=== PATIENT | male | born 1985 | race Caucasian/White ===

== ENCOUNTER 2016-08-06 15:40 | Inpatient (IN) | payer OTHER ==
[2016-08-06 16:05] LABS: Glucose,Whole Blood 74 mg/dL (75-99)
[2016-08-06] MEDS ORDERED: oxyCODONE-APAP 10-325MG 1 EACH TAB PO STA (16:10)
[2016-08-06] MEDS ORDERED: NALOXONE 0.4 MG/ML 1 ML VIAL IV PRN (17:13)
[2016-08-06] MEDS ORDERED: SODIUM CHLORIDE 0.9% 1,000 ML IV SCH (17:15)
[2016-08-06] MEDS ORDERED: ALPRAZolam 0.25 MG TAB PO PRN (17:18)
--- NOTE | 2016-08-06 17:19 | ED ---
Seizure HPI - General Chief Complaint: Seizure Stated Complaint: seizures Time Seen by Provider: 08/06/16 15:51 Source: patient Mode of arrival: EMS Limitations: altered mental status - History of Present Illness Initial Comments: This patient is a 30-year-old man with history of previous seizure disorder who was transferred here from [facility]. The patient reportedly had multiple seizures over the course of the past hours. The patient reportedly [facility] but as there is no neurologist there they treated him and transferred him here. The patient did receive a loading dose of Keppra there. Here the patient is appearing to be postictal and not able to give any additional history. MD Complaint: seizure -: hour(s) Description of Episode: loss of consciousness, tonic-clonic movement -: minutes(s) Witnessed: yes - by bystander Trauma: No Seizure History: known seizure disorder Place: home Possible Precipitating Event: head injury, medication Treatments Prior to Arrival: other (Keppra) - Related Data Home Medications Medication Instructions Recorded Confirmed ALPRAZolam [Xanax] 0.25 mg PO HS PRN 08/06/16 08/06/16 Gabapentin 800 mg PO TID 08/06/16 08/06/16 QUEtiapine [SEROquel] 400 mg PO HS 08/06/16 08/06/16 cloNIDine HCL [Catapres] 0.1 mg PO HS 08/06/16 08/06/16 oxyCODONE-APAP 10-325MG [Percocet 1 tab PO QID 08/06/16 08/06/16 10-325 mg] Previous Rx's Medication Instructions Recorded Nicotine 14Mg/24Hr Patch [Habitrol] 1 patch TRANSDERM DAILY #30 patch 08/07/16 levETIRAcetam [Keppra] 1,000 mg PO Q12HR #60 tab 08/07/16 Allergies Allergy/AdvReac Type Severity Reaction Status Date / Time haloperidol [From Haldol] Allergy Unknown Verified 08/06/16 16:55 haloperidol lactate Allergy Unknown Verified 08/06/16 16:55 [From Haldol] onion Allergy Swelling Verified 08/06/16 16:55 strawberry Allergy Swelling Verified 08/06/16 16:55 ziprasidone HCl [From Geodon] AdvReac Unknown Verified 08/06/16 16:55 ziprasidone mesylate AdvReac Vomiting Verified 08/06/16 16:55 [From Sumi] Review of Systems ROS Statement: Those systems with pertinent positive or pertinent negative responses have been documented in the HPI. ROS Other: All systems not noted in ROS Statement are negative. Limitations: ROS unobtainable due to patients medical condition Respiratory: Denies: dyspnea Cardiovascular: Denies: chest pain Gastrointestinal: Denies: abdominal pain Neurological: Denies: headache Past Medical History Past Medical History: Musculoskeletal Disorder Additional Past Medical History / Comment(s): Herniated disc with chronic back pain-diagnosed 1.5 year ago approximately. History of Any Multi-Drug Resistant Organisms: None Reported Past Surgical History: No Surgical Hx Reported Additional Past Surgical History / Comment(s): Cyst removed from the right wrist and right leg Past Anesthesia/Blood Transfusion Reactions: No Reported Reaction Past Psychological History: Bipolar Additional Psychological History / Comment(s): Mood disorder, Antisocial Personality disorder, and Previous suicidal attempts Smoking Status: Current every day smoker Past Alcohol Use History: Occasional Additional Past Alcohol Use History / Comment(s): He smokes one pack per day of cigarettes and states he drinks "once a week." Pt. admits to using marijuana every day. Past Drug Use History: Marijuana, Opiates, Prescription Drug Abuse Additional Drug Use History / Comment(s): morphine - Past Family History Father History Unknown: Yes Family Medical History: No Reported History Additional Family Medical History / Comment(s): He does not know any history on his father. Mother Family Medical History: Cancer Additional Family Medical History / Comment(s): Mother is alive at age 45 with history of breast cancer Sister(s) Family Medical History: No Reported History Additional Family Medical History / Comment(s): He has one sister that is living in the [facility] and is healthy. Patient does not have any brothers. General Exam Limitations: no limitations General appearance: obtunded Head exam: Present: atraumatic, normocephalic, normal inspection Eye exam: Present: normal appearance, PERRL. Absent: scleral icterus, conjunctival injection ENT exam: Present: mucous membranes dry, TM's normal bilaterally, normal external ear exam Neck exam: Present: normal inspection, full ROM. Absent: tenderness, meningismus Respiratory exam: Present: normal lung sounds bilaterally. Absent: respiratory distress, wheezes, rales, rhonchi, stridor, chest wall tenderness Cardiovascular Exam: Present: regular rate, normal rhythm, normal heart sounds. Absent: systolic murmur, diastolic murmur, rubs GI/Abdominal exam: Present: soft. Absent: distended, tenderness, guarding, rebound, pulsatile mass, hernia Extremities exam: Present: normal inspection, normal capillary refill. Absent: pedal edema, calf tenderness Back exam: Present: normal inspection. Absent: CVA tenderness (R), CVA tenderness (L) Neurological exam: Present: altered, CN II-XII intact, other (Patient appears to be postictal. He is not able to comply with the neurologic exam. Patient able to follow only very simple one step commands. There does not appear to be any focal weakness or sensory deficit, moves all 4 extremities.). Absent: oriented X3 (Patient oriented to person), motor sensory deficit Skin exam: Present: warm, dry, intact, normal color. Absent: rash Course Vital Signs 08/06/16 08/06/16 08/06/16 15:47 16:49 18:15 Temperature 98.0 F 98.0 F Pulse Rate 67 67 71 Respiratory 18 16 18 Rate Blood Pressure 123/67 114/69 103/57 O2 Sat by Pulse 96 98 98 Oximetry Medical Decision Making - Medical Decision Making Patient is a 30-year-old man with history of seizure disorder who has had multiple recent seizures, treated at [facility] with Kealexra and transferred here to have neurology consultation. He is not able to provide much history at this time he appears to be postictal. No focal neurologic findings however. Patient be admitted to have neurology consultation. - Lab Data Lab Results 08/06/16 Range/Units 16:01 POC Glucose (mg/dL) 74 L (75-99) mg/dL POC Glu [employer] Jogger ID Ezio Srlissa Disposition Clinical Impression: New onset seizure Disposition: ADMITTED IP TO THIS HOSP Condition: Fair
[2016-08-06] MEDS: oxyCODONE-APAP 10-325MG 1 EACH TAB PO PRN (19:21)
[2016-08-06] MEDS ORDERED: LORazepam 2 MG/ML SYRINGE IV PRN (19:39)
[2016-08-06] MEDS ORDERED: NICOTINE 14MG/24HR PATCH TRANSDERM STA (19:48)
[2016-08-06] MEDS ORDERED: QUEtiapine 400 MG TAB PO SCH (21:00)
--- NOTE | 2016-08-06 22:37 | P.HPIM ---
History of Present Illness H&P Date: 08/06/16 Chief Complaint: Refractory seizure, recent head trauma, possible side effect of medication, 30-year-old male one of Dr. Acosta patient with past medical history of hypertension, chronic back pain, recurrent depression and bipolar disorders, chronic history of smoking and chronic history of marijuana use who apparently fell and had close head trauma over 2 weeks ago has lost his consciousness 15 to 22nd begin it back without any neuro deficit. Yesterday patient developed to have multiple seizure activity on and off and every time left him with no neuro loss that was more slightly hypersensitive to the light at the time. Today patient had multiple seizure activity ended up making it to [facility] where was seen and evaluated was loaded with 1 g of Keppra giving some lorazepam CAT scan of the brain was done along with full panel blood work with no obvious major abnormality. Was transferred to [facility] to be seen by neurology and require to have an EEG and further management of this refractory seizure at this point. Review of Systems Constitutional: Reports fatigue, Reports lethargy, Reports malaise, Reports weakness, Denies as per HPI, Denies anorexia, Denies chills, Denies chronic headaches, Denies chronic pain, Denies daytime sleepiness, Denies fever, Denies night sweats, Denies poor appetite, Denies sweats, Denies weight gain, Denies weight loss Eyes: bilateral as per HPI Ears: deny: decreased hearing Ears, nose, mouth and throat: Reports ant. neck pain, Reports sinus pain, Reports sinus pressure, Denies as per HPI, Denies bleeding gums, Denies dental pain, Denies dysphagia, Denies epistaxis, Denies headache, Denies hoarseness, Denies mouth pain, Denies nasal congestion, Denies nasal discharge, Denies neck fullness/pressure, Denies neck lump, Denies nose pain, Denies odynophagia, Denies post-nasal drip, Denies swelling in mouth, Denies swelling in throat, Denies sore throat, Denies vertigo, Denies voice changes Cardiovascular: Denies as per HPI, Denies chest pain, Denies claudication, Denies decreased exercise tolerance, Denies dyspnea on exertion, Denies edema, Denies high blood pressure, Denies irregular heart beat, Denies leg edema, Denies lightheadedness, Denies orthopnea, Denies palpitations, Denies paroxysmal nocturnal dyspnea, Denies phlebitis, Denies rapid heart beat, Denies shortness of breath, Denies syncope Respiratory: Reports congestion, Reports cough, Reports dyspnea, Denies as per HPI, Denies cough with sputum, Denies excessive sputum, Denies hemoptysis, Denies home oxygen, Denies pain, Denies pain on inspiration, Denies pleurisy, Denies respiratory infections, Denies sleep apnea, Denies snoring, Denies wheezing Gastrointestinal: Reports belching, Reports constipation, Reports excessive gas , Reports indigestion, Reports nausea, Denies as per HPI, Denies abdominal pain , Denies bloating, Denies BRBPR, Denies change in bowel habits, Denies coffee ground emesis, Denies diarrhea, Denies dyspepsia, Denies early satiety, Denies heartburn, Denies hematemesis, Denies hematochezia, Denies jaundice, Denies lactose intolerance, Denies loss of appetite, Denies melena, Denies vomiting Genitourinary: Reports dysuria, Reports nocturia, Reports polyuria, Denies as per HPI, Denies decreased libido, Denies difficulties fathering child, Denies discharge, Denies erectile dysfunction, Denies flank pain, Denies genital pain, Denies genital sores, Denies hematuria, Denies impotence, Denies incontinence, Denies kidney stones, Denies testicular lump, Denies testicular pain, Denies urinary frequency, Denies urinary hesitancy, Denies urinary retention Musculoskeletal: Reports limitation of motion, Reports low back pain, Reports morning stiffness, Reports muscle cramps, Reports muscle weakness, Reports myalgias, Reports neck pain, Reports neck stiffness, Denies as per HPI, Denies arm numbness/tingling, Denies atrophy, Denies fractures, Denies frequent falls, Denies gait dysfunction, Denies hot joints, Denies leg numbness/tingling, Denies loss of height, Denies prior amputations, Denies redness of joints, Denies shooting arm pain, Denies shooting leg pain Integumentary: Denies as per HPI, Denies acne, Denies boils, Denies brittle nails, Denies change in hair/nails, Denies color changes, Denies darkening of skin, Denies depigmentation, Denies dryness, Denies foot/leg ulcers, Denies growths, Denies hirsutism, Denies lesions, Denies onychomycosis, Denies pruritus , Denies rash, Denies sores, Denies striae, Denies unusual bruising, Denies wounds Neurological: Reports convulsions, Reports gait dysfunction, Reports head injury , Reports numbness, Reports seizures, Reports tremors, Denies as per HPI, Denies aphasia, Denies ataxia, Denies balance difficulties, Denies burning pain , Denies change in mentation, Denies change in smell/taste, Denies change in speech, Denies confusion, Denies double vision, Denies headaches, Denies hearing difficulties, Denies lack of coordination, Denies loss of vision, Denies memory loss, Denies migraines, Denies motor disturbance, Denies paralysis , Denies paresthesias, Denies sensory deficit, Denies spasticity, Denies syncope , Denies tic, Denies tingling, Denies transient paralysis, Denies vertigo, Denies weakness, Denies visual changes Psychiatric: Reports anhedonia, Reports depression, Reports paranoia, Reports sadness/tearfulness, Denies as per HPI, Denies anxiety, Denies anxiety attacks, Denies change in appetite, Denies change in libido, Denies change in sleep habits, Denies confusion, Denies difficulty concentrating, Denies disorientation , Denies hallucinations, Denies hopelessness, Denies hypersomnia, Denies insomnia, Denies irritability, Denies memory loss, Denies mood swings, Denies sleep disturbances, Denies suicidal ideation Endocrine: Reports cold intolerance, Reports excessive thirst, Reports fatigue, Denies as per HPI, Denies deepening of the voice, Denies excessive sweating, Denies flushing, Denies heat intolerance, Denies high blood sugars, Denies increase in ring/shoe/hat size, Denies low blood sugars, Denies nocturia, Denies palpitations, Denies polydipsia, Denies polyphagia, Denies polyuria, Denies proptosis, Denies recent glucocorticoid use, Denies thyroid mass, Denies weight change Hematologic/Lymphatic: Denies as per HPI, Denies easy bleeding, Denies easy bruising, Denies lymphadenopathy, Denies lymphedema, Denies thrombophilia Allergic/Immunologic: Denies as per HPI, Denies allergic rhinitis, Denies anaphylaxis, Denies angioedema, Denies gluten intolerance, Denies persistent infections, Denies seasonal allergies, Denies urticaria, Denies wheezing Past Medical History Past Medical History: Musculoskeletal Disorder Additional Past Medical History / Comment(s): 08-06-16 [place] SEIZURE. Herniated disc with chronic back pain-diagnosed 1.5 year ago approximately. History of Any Multi-Drug Resistant Organisms: None Reported Past Surgical History: No Surgical Hx Reported Additional Past Surgical History / Comment(s): Cyst removed from the right wrist and right leg Past Anesthesia/Blood Transfusion Reactions: No Reported Reaction Past Psychological History: Bipolar Additional Psychological History / Comment(s): Mood disorder, Antisocial Personality disorder, and Previous suicidal attempts Smoking Status: Current every day smoker Past Alcohol Use History: Occasional Additional Past Alcohol Use History / Comment(s): He started smoking at age 12 smokes one pack per day of cigarettes and states he drinks "once a week." Pt. admits to using MED marijuana OCC USE- LAST USED 08-05-16-denies any other drug use currently. Past Drug Use History: Marijuana, Opiates, Prescription Drug Abuse Additional Drug Use History / Comment(s): morphine - Past Family History Father History Unknown: Yes Family Medical History: No Reported History Additional Family Medical History / Comment(s): He does not know any history on his father. Mother Family Medical History: Cancer Additional Family Medical History / Comment(s): Mother is alive at age 45 with history of breast cancer Sister(s) Family Medical History: No Reported History Additional Family Medical History / Comment(s): He has one sister that is living in the [facility] and is healthy. Patient does not have any brothers. Medications and Allergies Home Medications Medication Instructions Recorded Confirmed Type ALPRAZolam [Xanax] 0.25 mg PO HS PRN 08/06/16 08/06/16 History Gabapentin 800 mg PO TID 08/06/16 08/06/16 History QUEtiapine [SEROquel] 400 mg PO HS 08/06/16 08/06/16 History cloNIDine HCL [Catapres] 0.1 mg PO HS 08/06/16 08/06/16 History oxyCODONE-APAP 10-325MG [Percocet 1 tab PO QID 08/06/16 08/06/16 History 10-325 mg] Allergies Allergy/AdvReac Type Severity Reaction Status Date / Time haloperidol [From Haldol] Allergy Unknown Verified 08/06/16 16:55 haloperidol lactate Allergy Unknown Verified 08/06/16 16:55 [From Haldol] onion Allergy Swelling Verified 08/06/16 16:55 strawberry Allergy Swelling Verified 08/06/16 16:55 ziprasidone HCl [From Geodon] AdvReac Unknown Verified 08/06/16 16:55 ziprasidone mesylate AdvReac Vomiting Verified 08/06/16 16:55 [From Geodon] Physical Exam Vitals: Vital Signs Temp Pulse Pulse Resp BP BP Pulse Ox 08/06/16 19:05 97.6 F 77 17 104/62 100 08/06/16 18:15 98.0 F 71 18 103/57 98 - Constitutional General appearance: no average body habitus, cooperative, no disheveled, no mild distress, no morbidly obese, no acute distress, no obese, no severe distress, no thin - EENT Eyes: abnormal pupil, no anicteric sclerae, no disc margins sharp, no edentulous , no EOMI, no PERRLA, no fundus normal, no photophobia, no dentition normal, no poor dentition, no ptosis, no scleral icterus, no normal appearance ENT: no hard of hearing, no hearing grossly normal, no NA/AT, normal oropharynx , no other, no pharyngeal erythema, no thrush, no tonsillar exudates, no tonsillar swelling Ears: bilateral: normal - Neck Neck: no lymphadenopathy, no normal ROM, no other, no rigidity, no stridor, no thyromegaly Carotids: bilateral: upstroke normal Thyroid: bilateral: normal size - Respiratory Respiratory: bilateral: CTA, diminished - Cardiovascular Rhythm: regular Heart sounds: normal: S1, S2 - Gastrointestinal General gastrointestinal: no absent bowel sounds, decreased bowel sounds, no distended, no hepatomegaly, no hyperactive bowel sounds, no normal bowel sounds , no organomegaly, no rigid, no scaphoid, no soft, no splenomegaly, no tenderness, no umbilical hernia, no ventral hernia - Integumentary Integumentary: no calor, no cellulitis, no cyanotic, no decreased turgor, no flushed, no jaundiced, normal, no normal turgor, pale, no rash, no ulcer - Neurologic Neurologic: CNII-XII intact - Musculoskeletal Musculoskeletal: gait normal, generalized weakness, strength equal bilaterally, no right sided weakness, no left sided weakness - Psychiatric Psychiatric: A&O x's 3, appropriate affect Thrombosis Risk Factor Assmnt - DVT/VTE Prophylaxis DVT/VTE Prophylaxis: Mechanical Prophylaxis ordered Assessment and Plan Plan: 1 refractory seizure as a new onset of seizure: Shortly after close head trauma , not a clear etiology so far this is could be side effect from tramadol can be from the head trauma. Patient will be seen neurology will go for an EEG continue medication with Keppra after the loading dose for now if EEG showed any seizure activity patient need to be on treatment for seizure for long time otherwise this might be side effect from Ultram and if EEG is negative Keppra can be stopped after 4 weeks. 2 close head trauma recently: Patient does not have any bleeding or any major abnormality. Continue to monitor closely. 3 chronic pain management: Patient has been on hydrocodone and was on tramadol beside muscle relaxer and gabapentin, patient might be having side effect from tramadol which should be stopped completely at this point and to continue gabapentin and hydrocodone. 4 Chronic depression: Patient has been doing well on Seroquel 400 mg daily at bedtime. 5 hypertension: Stable on a clonidine 0.2 mg daily. 6 chronic herniated disc disease in the lumbar spine: Patient has been on pain management. 7 chronic smoking addiction: Patient be in nicotine patch 14 mg daily. 8 GERD/GI prophylaxis: Patient will be on Pepcid 20 mg daily. 9 DVT prophylaxis: Patient will have knee-high ERNST hose and Venodyne boots for now. CODE STATUS: Full code. Expectation from this admission: Patient be in the hospital for 1-2 nights.
[2016-08-06] MEDS: GABAPENTIN 400 MG CAP PO SCH (22:47)
[2016-08-07] MEDS: oxyCODONE-APAP 10-325MG 1 EACH TAB PO PRN ×2 (04:47→10:15)
[2016-08-07 07:46] VITALS: PULSE 60
[2016-08-07] MEDS ORDERED: NICOTINE 14MG/24HR PATCH TRANSDERM SCH (09:00)
[2016-08-07] MEDS ORDERED: levETIRAcetam 500 MG TAB PO SCH (09:00)
[2016-08-07] MEDS ORDERED: FAMOTIDINE 20 MG TAB PO SCH (09:00)
--- NOTE | 2016-08-07 09:30 | CONS ---
DATE OF CONSULTATION: 08/06/2016 CHIEF COMPLAINT: Seizures. HISTORY OF PRESENT ILLNESS: The patient is a 30-year-old male who is being evaluated today on 08/06/2016 by the Neurology Service per the request of Dr. Gutierrez for multiple seizures. The patient was initially brought into [facility] emergency room after he had 3 or 4 witnessed seizures at home. He had another witnessed seizure witnessed by the medical staff. The patient was transferred to [facility] emergency room for further work-up and management. The patient denies any history of seizures. In reviewing his home medications, he is on Tramadol for chronic low back pain and is treating with a pain specialist in [place] for this. The seizures were described as generalized tonic-clonic seizures with postictal confusion and drowsiness. Each seizure lasted 1 to 2 minutes. The patient was started on Keppra 750 mg b.i.d. He is currently on seizure precautions and he has not had any further seizures since his admission to [facility]. A CT scan of the brain was done at [facility] and it was negative according to the emergency room records. His CBC and comprehensive metabolic profile were also normal according to the emergency room records. At the time of my evaluation, the patient is resting in his bed and appears to be in no acute distress. He denies any neurological symptoms at this time. PAST MEDICAL HISTORY: Chronic lumbago, bipolar disorder. SOCIAL HISTORY: The patient is a current every day smoker. He smokes 1 pack of cigarettes daily. He occasionally drinks alcohol. He occasionally smokes marijuana. He denies any IV drug use. HOME MEDICATIONS: Reviewed in the chart. ALLERGIES: CATAPRES, HALDOL, GEODON, STRAWBERRIES, ONIONS. REVIEW OF SYSTEMS: CONSTITUTIONAL: Negative. EYES: Negative. ENT: Negative. CARDIOVASCULAR: Negative. RESPIRATORY: Negative. NEUROLOGICAL: As mentioned above. GASTROINTESTINAL: Negative. GENITOURINARY: Negative. MUSCULOSKELETAL: As mentioned above. PSYCHIATRIC: Positive for history of bipolar disorder. DERMATOLOGICAL: Negative. ENDOCRINE: Negative. PHYSICAL EXAM: Vital signs show a temperature of 98.0, pulse 67, respirations 16, blood pressure 114/69. GENERAL APPEARANCE: The patient is a well-developed male who appears to be in no acute distress. HEENT: Normocephalic, atraumatic, no facial asymmetry is seen. Extraocular muscles are intact. Neck is supple with no masses felt. CARDIOVASCULAR: Regular rate and rhythm. ABDOMEN: Nontender, nondistended. EXTREMITIES: Showed no edema or clubbing. NEUROLOGICAL EXAM: The patient is alert, aware, and oriented x3. Speech and language are normal. Strength is full in all 4 extremities. Sensory exam was normal to light touch in all 4 extremities. No facial asymmetry is seen. No tremors or seizure-like activity is noticed. IMPRESSION: 1. Multiple generalized tonic-clonic seizures. 2. Chronic low back pain. 3. Bipolar disorder. RECOMMENDATION: The patient did have approximately 4 generalized tonic-clonic seizures over the past 36 hours. Although he had been on Ultram for approximately one year, it could still be that his seizures are adverse reaction as Ultram does reduce seizure threshold. Ultram has been discontinued. Due to the number of seizures that he did suffer, I do agree with continuing antiepileptic medications. I will change his Keppra dose to 1000 mg b.i.d. An EEG has been ordered. The patient was told that he is not to drive or operate any heavy machinery for a period of 6 months of being seizure-free. The patient was also told that he is to avoid heights as he sometimes works as a caseworker intake. Continue seizure precautions. We will consider ordering an outpatient MRI of the brain once he is seen in clinic. Continue the rest of your current work-up and management. I will continue to follow with you. Further recommendations to follow. Thank you for allowing me to participate in the care of your patient. If you have any questions, please feel free to contact me.
[2016-08-07] MEDS: GABAPENTIN 400 MG CAP PO SCH (10:17)
--- NOTE | 2016-08-07 15:27 | P.DS ---
Providers Date of admission: 08/06/16 17:15 Attending physician: Fabrizio Gutierrez Primary care physician: [facility] Course: Refractory seizure, recent head trauma, possible side effect of medication, 30-year-old male one of Dr. Acosta patient with past medical history of hypertension, chronic back pain, recurrent depression and bipolar disorders, chronic history of smoking and chronic history of marijuana use who apparently fell and had close head trauma over 2 weeks ago has lost his consciousness 15 to 22nd begin it back without any neuro deficit. Yesterday patient developed to have multiple seizure activity on and off and every time left him with no neuro loss that was more slightly hypersensitive to the light at the time. Today patient had multiple seizure activity ended up making it to [facility] where was seen and evaluated was loaded with 1 g of Keppra giving some lorazepam CAT scan of the brain was done along with full panel blood work with no obvious major abnormality. Was transferred to [facility] to be seen by neurology and require to have an EEG and further management of this refractory seizure at this point. Patient was seen Dr. Blackburn who agree with the current management and increased Propped 1000 g twice a day. Patient had no further seizure since his admission and since he was started on Keppra. His tramadol was stopped completely. Patient was consult in full regarding no driving for the next 6 months and to follow-up with neurology. EEG was perform results still pending at this point patient will be on Keppra for at least 1 month if EEG is positive require to be on Keppra longer term. If negative he can discontinue Keppra after 1 month while he been supervise by neurology. 1 refractory seizure as a new onset of seizure: Shortly after close head trauma , not a clear etiology so far this is could be side effect from tramadol can be from the head trauma. Patient will be seen neurology will go for an EEG continue medication with Keppra after the loading dose for now if EEG showed any seizure activity patient need to be on treatment for seizure for long time otherwise this might be side effect from Ultram and if EEG is negative Keppra can be stopped after 4 weeks. 2 close head trauma recently: Patient does not have any bleeding or any major abnormality. Continue to monitor closely. 3 chronic pain management: Patient has been on hydrocodone and was on tramadol beside muscle relaxer and gabapentin, patient might be having side effect from tramadol which should be stopped completely at this point and to continue gabapentin and hydrocodone. 4 Chronic depression: Patient has been doing well on Seroquel 400 mg daily at bedtime. 5 hypertension: Stable on a clonidine 0.2 mg daily. 6 chronic herniated disc disease in the lumbar spine: Patient has been on pain management. 7 chronic smoking addiction: Patient be in nicotine patch 14 mg daily. 8 GERD/GI prophylaxis: Patient will be on Pepcid 20 mg daily. Still awaiting for the final result from his EEG patient will be continue on Keppra 1000 g twice a day and to be discharged and follow as an outpatient by Dr. Acosta and Dr. Blackburn within a week. No driving and decision for the length of time to be treated to be discuss between patient on Dr. Blackburn. Patient Condition at Discharge: Fair Plan - Discharge Summary New Discharge Prescriptions: Nicotine 14Mg/24Hr Patch [Habitrol] 1 patch TRANSDERM DAILY #30 patch levETIRAcetam [Keppra] 1,000 mg PO Q12HR #60 tab Discharge Medication List ALPRAZolam [Xanax] 0.25 mg PO HS PRN 08/06/16 [History] Gabapentin 800 mg PO TID 08/06/16 [History] QUEtiapine [SEROquel] 400 mg PO HS 08/06/16 [History] cloNIDine HCL [Catapres] 0.1 mg PO HS 08/06/16 [History] oxyCODONE-APAP 10-325MG [Percocet 10-325 mg] 1 tab PO QID 08/06/16 [History] Nicotine 14Mg/24Hr Patch [Habitrol] 1 patch TRANSDERM DAILY #30 patch 08/07/16 [ Rx] levETIRAcetam [Keppra] 1,000 mg PO Q12HR #60 tab 08/07/16 [Rx] Follow up Appointment(s)/Referral(s): Thompson Acosta MD [Primary Care Provider] - 1-2 days Patient Instructions/Handouts: New-Onset Seizure in Adults (ED)
--- NOTE | 2016-08-07 15:49 | P.PN ---
Subjective Principal diagnosis: Seizures This 30-year-old male continuing be evaluated by the neurology service for seizures. He was in his home and had 3 or 4 witnessed seizures. He does admit to taking extra altered prior to his episodes. Initially denied a history of seizures, but now recalls he had 1 seizure in the past about 4 years ago. He relates this to taking double doses of Ultram. He takes pain medications for his chronic low back pain. Since starting Keppra 750 mg twice a day there is been no seizure activity. Ultram is been discontinued. A computed tomography scan of the brain was negative. An EEG has just been performed at the time of my exam. Objective - Vital Signs Vital signs: Vital Signs Temp 97.2 F L 08/07/16 07:00 Pulse 60 08/07/16 08:00 Resp 16 08/07/16 08:00 BP 96/54 08/07/16 07:00 Pulse Ox 100 08/07/16 07:00 Intake & Output 08/06/16 08/07/16 08/07/16 18:59 06:59 18:59 Intake Total 600 480 Balance 600 480 Intake: Oral 600 480 Other: Voiding Method Toilet Toilet # Voids 1 3 - Constitutional General appearance: Present: average body habitus, no acute distress - EENT Eyes: Present: EOMI, PERRLA. Absent: abnormal pupil, ptosis ENT: Present: hearing grossly normal - Neck Neck: Present: normal ROM. Absent: rigidity - Respiratory Respiratory: negative: prolonged expiration, prolonged inspiration - Cardiovascular Rhythm: regular - Gastrointestinal General gastrointestinal: Absent: distended, tenderness - Neurologic Neurologic Comment(s): Is alert awake and oriented 3. Speech-language are normal. No tremors or seizure-like activities are seen. There is no lateralizing weakness. Strength is full in all 4 extremities. There is no sensory deficit. Assessment and Plan (1) Generalized convulsive seizures Status: Acute (2) Chronic low back pain Status: Chronic (3) Bipolar disorder Status: Chronic (4) Cannabis abuse with cannabis-induced disorder Status: Chronic Plan: Patient remains seizure free on 750 mg twice a day Keppra. An EEG has just been performed. Recommend discontinuation of Ultram. He is again instructed according the [facility] he is not to drive or operate heavy machinery for a period of 6 months. Recommend follow up in outpatient setting for further evaluation, which may include MRI of the brain. Otherwise he is cleared from a neurological standpoint. I have performed a history and physical on the above patient. I have reviewed the above note, and agree.
[2016-08-07 16:10] VITALS: BP 110/62; RESP 18; TEMP 97.9
[2016-08-07] MEDS ORDERED: cloNIDine HCL 0.1 MG TAB PO SCH (21:00)
--- NOTE | 2016-08-08 06:52 | EEG ---
DATE OF SERVICE: 08/07/2016 REASON FOR TESTING: Seizures. AGE: 30Y CURRENT ANTIEPILEPTIC MEDICATIONS: Keppra. DESCRIPTION OF THE PROCEDURE: This EEG was performed using a 21-channel digital electroencephalograph, following the international 10 to 20 system. DESCRIPTION OF THE RECORDING: From the beginning of the tracing, and with the patient's eyes closed, the background rhythm was mostly consisting of 9 Hz alpha frequency in the posterior occipital leads. No obvious asymmetry is seen. Frequent muscle and movement artifacts are seen. Photic stimulation was performed with a good driving response seen. No pathological waves were elicited. Hyperventilation was performed with no build-up of amplitude seen. Again, no pathological waves were elicited. The patient remains awake throughout the tracing. No epileptiform discharges were seen. His EKG lead showed a regular rate and rhythm. INTERPRETATION: This awake EEG can be considered within normal limits. There was no asymmetry seen. No epileptiform discharges were noticed. The absence of epileptiform discharges does not rule out the diagnosis of epilepsy, therefore, clinical correlation is recommended.
== END 2016-08-07 15:55 | disposition home or self-care (01) | DRG 101 ==
LOC: EC 15:40 → 5MS5E 17:15
PROVIDERS: ADMIT Internal Medicine Geriatric Medicine; ATTEND Internal Medicine Geriatric Medicine
DX: G40.409 Other generalized epilepsy and epileptic syndromes, not intractable, without status epilepticus (principal); F31.30 Bipolar disorder, current episode depressed, mild or moderate severity, unspecified; I10 Essential (primary) hypertension; G89.29 Other chronic pain; M54.5 Low back pain; K21.9 Gastro-esophageal reflux disease without esophagitis; F17.210 Nicotine dependence, cigarettes, uncomplicated; F12.19 Cannabis abuse with unspecified cannabis-induced disorder; F60.2 Antisocial personality disorder; Z88.8 Allergy status to other drugs, medicaments and biological substances; Z79.891 Long term (current) use of opiate analgesic; Z79.899 Other long term (current) drug therapy
CPT/HCPCS: 36415; 95819; 99285

== ENCOUNTER 2017-07-01 14:40 | Inpatient (IN) | payer MEDICAID, OTHER ==
--- NOTE | 2017-07-01 16:30 | ED ---
General Adult HPI - General Chief complaint: Psychiatric Symptoms Stated complaint: suicidal Time Seen by Provider: 07/01/17 15:19 Source: patient, RN notes reviewed, old records reviewed Mode of arrival: ambulatory Limitations: no limitations - History of Present Illness Initial comments: This is a 31-year-old male to the ER for evaluation. Patient presented today for psychiatric disease patient presented for suicidal ideation. Patient denies drugs or alcohol. Patient states he's been off his psychiatric medications and symptoms has been getting progressively worse - Related Data Home Medications Medication Instructions Recorded Confirmed Gabapentin 600 mg PO Q6H 07/01/17 07/01/17 HYDROcodone/APAP 10-325MG [[place] 1 tab PO Q6H PRN 07/01/17 07/01/17 10-325] traMADol HCL [Ultram] 50 mg PO Q6HR PRN 07/01/17 07/01/17 Allergies Allergy/AdvReac Type Severity Reaction Status Date / Time onion Allergy Swelling Verified 07/01/17 15:42 strawberry Allergy Swelling Verified 07/01/17 15:42 haloperidol [From Haldol] AdvReac Unknown Verified 07/01/17 15:42 haloperidol lactate AdvReac Unknown Verified 07/01/17 15:42 [From Haldol] ziprasidone HCl [From Geodon] AdvReac Unknown Verified 07/01/17 15:42 ziprasidone mesylate AdvReac Vomiting Verified 07/01/17 15:42 [From Geodon] Review of Systems ROS Statement: Those systems with pertinent positive or pertinent negative responses have been documented in the HPI. ROS Other: All systems not noted in ROS Statement are negative. Past Medical History Past Medical History: Musculoskeletal Disorder Additional Past Medical History / Comment(s): Herniated disc with chronic back pain-diagnosed 1.5 year ago approximately. History of Any Multi-Drug Resistant Organisms: None Reported Past Surgical History: No Surgical Hx Reported Additional Past Surgical History / Comment(s): Cyst removed from the right wrist and right leg Past Anesthesia/Blood Transfusion Reactions: No Reported Reaction Past Psychological History: Bipolar Smoking Status: Current every day smoker Past Alcohol Use History: Occasional Past Drug Use History: Marijuana, Opiates, Prescription Drug Abuse - Past Family History Father History Unknown: Yes Family Medical History: No Reported History Additional Family Medical History / Comment(s): He does not know any history on his father. Mother Family Medical History: Cancer Additional Family Medical History / Comment(s): Mother is alive at age 45 with history of breast cancer Sister(s) Family Medical History: No Reported History Additional Family Medical History / Comment(s): He has one sister that is living in the [facility] and is healthy. Patient does not have any brothers. General Exam Limitations: no limitations General appearance: alert, in no apparent distress Head exam: Present: atraumatic, normocephalic, normal inspection Eye exam: Present: normal appearance, PERRL, EOMI. Absent: scleral icterus, conjunctival injection, periorbital swelling ENT exam: Present: normal exam, mucous membranes moist Neck exam: Present: normal inspection. Absent: tenderness, meningismus, lymphadenopathy Respiratory exam: Present: normal lung sounds bilaterally. Absent: respiratory distress, wheezes, rales, rhonchi, stridor Cardiovascular Exam: Present: regular rate, normal rhythm, normal heart sounds. Absent: systolic murmur, diastolic murmur, rubs, gallop, clicks GI/Abdominal exam: Present: soft, normal bowel sounds. Absent: distended, tenderness, guarding, rebound, rigid Extremities exam: Present: normal inspection, full ROM, normal capillary refill. Absent: tenderness, pedal edema, joint swelling, calf tenderness Back exam: Present: normal inspection Neurological exam: Present: alert, oriented X3, CN II-XII intact Psychiatric exam: Present: normal affect, normal mood Skin exam: Present: warm, dry, intact, normal color. Absent: rash Course Vital Signs 07/01/17 07/01/17 14:59 19:09 Temperature 98.2 F 98.7 F Pulse Rate 71 82 Respiratory 18 16 Rate Blood Pressure 115/75 120/81 O2 Sat by Pulse 98 97 Oximetry - Reevaluation(s) Reevaluation #1: 07/01/17 16:30 Patient's medically clear for psychiatric evaluation Medical Decision Making - Medical Decision Making 31 male seen seen and evaluated by psychiatry will be admitted for psychiatric evaluation and treatment Disposition Clinical Impression: Cannabis abuse with cannabis-induced disorder, Bipolar disorder, Suicidal ideation Disposition: TRANSFER TO PSYCH HOSP/UNIT Condition: Fair
[2017-07-01] MEDS ORDERED: ACETAMINOPHEN TAB 325 MG TAB PO PRN (19:10)
[2017-07-01] MEDS ORDERED: MAG HYDROX/AL HYDROX/SIMETH 30 ML CUP PO PRN (19:10)
[2017-07-01] MEDS ORDERED: MAGNESIUM HYDROXIDE 2,400 MG/10 ML CUP PO PRN (19:10)
--- NOTE | 2017-07-01 20:11 | P.HPMEDMHU ---
History of Present Illness H&P Date: 07/01/17 Chief Complaint: Suicidal ideation The patient is a 31-year-old male with a past medical history of depression, bipolar disorder and anxiety that is admitted to the mental health unit with suicidal ideation worsening depression. Apparently the patient was previously incarcerated [facility] for 6 months for writing bad checks , he was recently released and was not provided any prescriptions for his psychiatric illnesses. Since then the patient has been having increasing fatigue, poor sleep, loss of appetite and has been having command hallucinations telling him to harm himself, the patient has a specific plan reports that he would overdose on heroin as he's heard that it's painless. The patient has had increased stressors since being released, currently residing with his mom. Reports that he missed his grandmother's and that he has increasing feelings of hopelessness and helplessness as he is unable to provide for his niece and nephew. He also mentions increasing episodes of panic attacks having approximately 6-8 in the last 4 weeks, he mentions typical symptoms of chest tightness, numbness and tingling, shortness of air and diaphoresis with his attacks, they seem to occur when he is in public. Apparently the patient was on lithium, Zyprexa, BuSpar for psychiatric illnesses while incarcerated, he also has a history of seizure disorder and was taking Tegretol, Neurontin while incarcerated and was previously on Keppra previous to being incarcerated. He reports his last seizure being approximately 6 months ago while incarcerated. The patient reports a history of marijuana use, chronic back pain and smoking. Review of Systems Negative except per HPI Past Medical History Past Medical History: Musculoskeletal Disorder Additional Past Medical History / Comment(s): Herniated disc with chronic back pain-diagnosed 1.5 year ago approximately. History of Any Multi-Drug Resistant Organisms: None Reported Past Surgical History: No Surgical Hx Reported Additional Past Surgical History / Comment(s): Cyst removed from the right wrist and right leg Past Anesthesia/Blood Transfusion Reactions: No Reported Reaction Past Psychological History: Bipolar Smoking Status: Current every day smoker Past Alcohol Use History: Occasional Past Drug Use History: Marijuana, Opiates, Prescription Drug Abuse - Past Family History Father History Unknown: Yes Family Medical History: No Reported History Additional Family Medical History / Comment(s): He does not know any history on his father. Mother Family Medical History: Cancer Additional Family Medical History / Comment(s): Mother is alive at age 45 with history of breast cancer Sister(s) Family Medical History: No Reported History Additional Family Medical History / Comment(s): He has one sister that is living in the [facility] and is healthy. Patient does not have any brothers. Medications and Allergies Home Medications Medication Instructions Recorded Confirmed Type Gabapentin 600 mg PO Q6H 07/01/17 07/01/17 History HYDROcodone/APAP 10-325MG [[place] 1 tab PO Q6H PRN 07/01/17 07/01/17 History 10-325] traMADol HCL [Ultram] 50 mg PO Q6HR PRN 07/01/17 07/01/17 History Allergies Allergy/AdvReac Type Severity Reaction Status Date / Time onion Allergy Swelling Verified 07/01/17 15:42 strawberry Allergy Swelling Verified 07/01/17 15:42 haloperidol [From Haldol] AdvReac Unknown Verified 07/01/17 15:42 haloperidol lactate AdvReac Unknown Verified 07/01/17 15:42 [From Haldol] ziprasidone HCl [From Geodon] AdvReac Unknown Verified 07/01/17 15:42 ziprasidone mesylate AdvReac Vomiting Verified 07/01/17 15:42 [From Geodon] Physical Exam Vitals: Vital Signs Temp Pulse Pulse Resp BP BP Pulse Ox 07/01/17 19:32 97.9 F 90 18 130/81 100 07/01/17 19:09 98.7 F 82 16 120/81 97 07/01/17 14:59 98.2 F 71 18 115/75 98 Intake and Output 07/01/17 07/01/17 07/01/17 06:59 14:59 22:59 Other: Weight 95.254 kg Patient Weight 07/02/17 06:59 Weight 95.254 kg Constitutional: No acute distress, conversant, pleasant Eyes: Anicteric sclerae, moist conjunctiva, no lid-lag, PERRLA ENMT: NC/AT,Oropharynx clear, no erythema, exudates Neck:Supple, FROM, no masses, or JVD, No carotid bruits; No thyromegaly Lungs: Clear to auscultation, Clear to percussion, Normal respiratory effort, no accessory muscle use Cardiovascular: Heart regular in rate and rhythm, No murmurs, gallops, or rubs no peripheral edema Abdominal: Soft Nontender, nom distended, no guarding, no rebound or rigidity, Normoactive bowel sounds No hepatomegaly, No splenomegaly, No palpable mass No abdominal wall hernia noted Skin: Normal temperature, tone, texture, turgor, No induration No subcutaneous nodules, No rash, lesions, No ulcers Extremities:No digital cyanosis No clubbing, Pedal pulses intact and symmetrical Radial pulses intact and symmetrical Normal gait and station, No calf tenderness Psychiatric: Alert and oriented to person, place and time, Appropriate affect Intact judgement Neuro: Muscles Strength 5/5 in all 4 extremities, Sensation to light touch grossly present throughout, Cranial nerves II-XII grossly intact. No focal sensory deficits Cranial Nerve Examination - Cranial Nerves Cranial Nerve II- Optic: Intact Cranial Nerve III- Oculomotor: Intact Cranial Nerve IV- Trochlear: Intact Cranial Nerve V- Trigeminal: Intact Cranial Nerve - Abducens: Intact Cranial Nerve VII- Facial: Intact Cranial Nerve VIII- Auditory: Intact Cranial Nerve IX- Glossopharyngeal: Intact Cranial Nerve X- Vagus: Intact Cranial Nerve XI- Accessory: Intact Cranial Nerve XII- Hypoglossal: Intact Assessment and Plan Assessment: The patient is admitted to mental health unit anticipated greater than 2 midnight stay with severe depression and suicidal ideation with possible schizoaffective disorder and anxiety. We'll defer treatment to primary team psychiatry agree with placement on mental health unit with suicide precautions. For the patient's history of seizure we'll start him on Keppra 500 mg by mouth twice a day and get baseline labs CBC CMP TSH. We'll continue to follow his clinical course. I appreciate this consult (1) Suicidal ideation Current Visit: Yes Status: Acute Code(s): R45.851 - SUICIDAL IDEATIONS SNOMED Code(s): 7070536 (2) Seizure disorder Current Visit: Yes Status: Acute Code(s): G40.909 - EPILEPSY, UNSP, NOT INTRACTABLE, WITHOUT STATUS EPILEPTICUS SNOMED Code(s): 043195367 (3) Bipolar disorder Current Visit: No Status: Chronic Code(s): F31.9 - BIPOLAR DISORDER, UNSPECIFIED SNOMED Code(s): 44131093 (4) Cannabis abuse with cannabis-induced disorder Current Visit: No Status: Chronic Priority: Medium Code(s): F12.19 - CANNABIS ABUSE WITH UNSPECIFIED CANNABIS-INDUCED DISORDER SNOMED Code(s): 79334902 (5) Chronic low back pain Current Visit: No Status: Chronic Code(s): M54.5 - LOW BACK PAIN; G89.29 - OTHER CHRONIC PAIN SNOMED Code(s): 942433260 (6) Depression Current Visit: No Status: Chronic Code(s): F32.9 - MAJOR DEPRESSIVE DISORDER , SINGLE EPISODE, UNSPECIFIED SNOMED Code(s): 07485221 (7) Generalized anxiety disorder with panic attacks Current Visit: Yes Status: Acute Code(s): F41.1 - GENERALIZED ANXIETY DISORDER; F41.0 - PANIC DISORDER [EPISODIC PAROXYSMAL ANXIETY] SNOMED Code(s) : 52752999
[2017-07-01] MEDS: NICOTINE 21MG/24HR PATCH TRANSDERM SCH (20:53)
[2017-07-01] MEDS: levETIRAcetam 500 MG TAB PO SCH (20:53)
[2017-07-01] MEDS ORDERED: QUEtiapine 100 MG TAB PO SCH (21:00)
[2017-07-02] MEDS: hydrOXYzine PAMOATE 25 MG CAP PO PRN ×2 (07:29→17:10)
[2017-07-02] MEDS: levETIRAcetam 500 MG TAB PO SCH ×2 (09:02→20:53)
[2017-07-02] MEDS: NICOTINE 21MG/24HR PATCH TRANSDERM SCH (09:02)
[2017-07-02 09:43] LABS: ALT 24 U/L (21-72); AST 13 U/L (17-59); Albumin 4.4 g/dL (3.5-5.0); Alkaline Phosphatase 101 U/L (38-126); Anion Gap 9 mmol/L; Blood Urea Nitrogen 11 mg/dL (9-20); Calcium 10.1 mg/dL (8.4-10.2); Carbon Dioxide 28 mmol/L (22-30); Chloride 105 mmol/L (98-107); Cholesterol 215 mg/dL (<200); Glucose 112 mg/dL (74-99); HDL Cholesterol 52 mg/dL (40-60); LDL Cholesterol,Calculated 139 mg/dL (0-99); Potassium 4.6 mmol/L (3.5-5.1); Sodium 142 mmol/L (137-145); Total Bilirubin 0.3 mg/dL (0.2-1.3); Total Protein 7.1 g/dL (6.3-8.2); Triglycerides 120 mg/dL (<150)
[2017-07-02 09:55] LABS: Basophils % (A) 0 %; Eosinophils # (A) 0.2 k/uL (0-0.7); Eosinophils % (A) 4 %; HCT 47.5 % (39.0-53.0); HGB 15.4 gm/dL (13.0-17.5); Lymphocytes # (A) 1.9 k/uL (1.0-4.8); Lymphocytes % (A) 36 %; MCH 28.9 pg (25.0-35.0); MCHC 32.5 g/dL (31.0-37.0); Mean Platelet Volume 8.6; Monocytes # (A) 0.3 k/uL (0-1.0); Monocytes % (A) 6 %; Neutrophils # (A) 2.7 k/uL (1.3-7.7); Neutrophils % (A) 51 %; Platelet Count 307 k/uL (150-450); RBC 5.34 m/uL (4.30-5.90); RDW 14.7 % (11.5-15.5); WBC 5.3 k/uL (3.8-10.6)
--- NOTE | 2017-07-02 10:15 | P.HP ---
Psychiatric H&P - . History & Physical: Allergies Allergy/AdvReac Type Severity Reaction Status Date / Time onion Allergy Swelling Verified 07/01/17 15:42 strawberry Allergy Swelling Verified 07/01/17 15:42 haloperidol [From Haldol] AdvReac Unknown Verified 07/01/17 15:42 haloperidol lactate AdvReac Unknown Verified 07/01/17 15:42 [From Haldol] ziprasidone HCl [From Geodon] AdvReac Unknown Verified 07/01/17 15:42 ziprasidone mesylate AdvReac Vomiting Verified 07/01/17 15:42 [From Geodon] Vital Signs Temp 98.5 F 07/02/17 06:22 Pulse 79 07/02/17 06:22 Resp 16 07/02/17 06:22 BP 91/54 07/02/17 06:22 Pulse Ox 100 07/01/17 19:32 Intake & Output 07/01/17 07/02/17 07/02/17 18:59 06:59 18:59 Weight 95.254 kg Laboratory Last Values WBC 5.3 k/uL (3.8-10.6) 07/02/17 08:30 RBC 5.34 m/uL (4.30-5.90) 07/02/17 08:30 Hgb 15.4 gm/dL (13.0-17.5) 07/02/17 08:30 Hct 47.5 % (39.0-53.0) 07/02/17 08:30 MCV 89.0 fL (80.0-100.0) 07/02/17 08:30 MCH 28.9 pg (25.0-35.0) 07/02/17 08:30 MCHC 32.5 g/dL (31.0-37.0) 07/02/17 08:30 RDW 14.7 % (11.5-15.5) 07/02/17 08:30 Plt Count 307 k/uL (150-450) 07/02/17 08:30 Neutrophils % 51 % 07/02/17 08:30 Lymphocytes % 36 % 07/02/17 08:30 Monocytes % 6 % 07/02/17 08:30 Eosinophils % 4 % 07/02/17 08:30 Basophils % 0 % 07/02/17 08:30 Neutrophils # 2.7 k/uL (1.3-7.7) 07/02/17 08:30 Lymphocytes # 1.9 k/uL (1.0-4.8) 07/02/17 08:30 Monocytes # 0.3 k/uL (0-1.0) 07/02/17 08:30 Eosinophils # 0.2 k/uL (0-0.7) 07/02/17 08:30 Basophils # 0.0 k/uL (0-0.2) 07/02/17 08:30 07/02/17 10:05 IDENTIFYING DATA: This patient is a 31-year-old single male who was admitted to the mental health unit through the emergency room reporting feelings of depression with suicidal ideation. HPI: The patient presented reporting feelings of acute depression and suicidal thoughts with a planned overdose. He describes having poor sleep and poor energy and hopeless thoughts. He endorses racing thoughts due to anxiety and feels very restless because of anxiety symptoms. He states he was recently released from [facility] on 06/17/2017. He was there for 6 months. Reportedly he was prescribed BuSpar Zyprexa lithium Seroquel and Tegretol. He states he has been on Seroquel for a number of years to help stabilize mood symptoms. He felt the BuSpar may have been helpful for his anxiety. The patient has been now admitted to this mental health unit 7 times since October 2014. He does have a known history of chemical dependency issues including benzodiazepines and opiates. He states that usually he does comes to the hospital to get back on medications but seems to have poor compliance with outpatient mental health treatment. He presented to the hospital suicidal ideation he feels safe here in the hospital now. He is reporting no homicidal ideation. There is no clear history of hypomanic or manic episodes. He reported auditory hallucinations last evening but he is endorsing no hallucinations today. No specific delusions noted. PAST PSYCHIATRIC HISTORY: This is his seventh inpatient admissions since October 2014 he has approximately 11 total admissions. He has at least 2 suicide attempts in the past 1 with overdose 1. Attempted hanging. He has been on numerous psychotropics in the past including BuSpar Zyprexa lithium and doxepin Seroquel Vistaril Wellbutrin and Zoloft. He has received several psychiatric diagnoses in the past including mood disorder not otherwise specified, major depressive disorder, bipolar disorder, and substance use related diagnoses. He has no ongoing outpatient mental health follow-up. He reports he was seen by psychiatry in the [facility] but no follow-up was arranged when he was released. PMH: He reports chronic back pain, he has an unspecified history of head injury with subsequent seizure. He was hospitalized for the seizure and evaluated by neurology. He was placed on Keppra but the patient did not follow-up afterwards. He states he was given Keppra again in intermediate but it caused headaches and this was switched to Tegretol. ALLERGIES: He reports ALLERGIES to Geodon and Haldol MEDICATIONS: As above CHEMICAL DEPENDENCY HISTORY: He uses marijuana on a daily basis, he has a history of abusing opiates and benzodiazepines FAMILY PSYCHIATRIC HISTORY: None reported no suicides in the family FAMILY CHEMICAL DEPENDENCY HISTORY: Unknown SOCIAL HISTORY: He patient is 31 years old he single he has no children he resides with his mother. He has a 10th grade education and later earned his GED. 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 He was just recently released from [facility] for a six-month sentence for auditory and publishing. In 2006 he was released from [facility] after serving 5-1/2 years for attempted murder. He has been in intermediate a number of times for other offenses. He reports no abuse history. MENTAL STATUS EXAM: is a male appearing his stated age he is bald he is dressed in his own clothing. Eye contact is appropriate. He endorses a depressed mood with presenting suicidal ideation. He is endorsing no homicidal ideation intent or plan. He is endorsing no auditory or visual hallucinations today or any specific delusions there is no observed evidence of psychosis. Thought process is linear he demonstrates no tangential thinking loose associations or flight of ideas he does not appear hypomanic or manic. He demonstrates no verbal or physical aggressiveness. He is cooperative and easily directed. He demonstrates no abnormal involuntary movements. He is oriented to person place and date. He is able to spell world forwards and backwards. STRENGTHS/WEAKNESSES: Strengths: Willingness to receive voluntary treatment, housing weaknesses: Unemployment history of poor compliance with outpatient care INTELLECTUAL FUNCTIONING: Average IMPRESSIONS: [] 1. Depression unspecified, rule out major depressive disorder, anxiety unspecified, history of benzodiazepine use disorder, history of opiate use disorder, cannabis use disorder 2. Antisocial personality disorder traits 3. History of seizure 4. Unemployment PLAN: The patient has been admitted to the mental health unit he has signed in voluntarily. We reviewed his presenting symptoms and medication options. We will continue the Seroquel titrated to 300 mg at bedtime we will restart the BuSpar 15 mg twice daily for anxiety. Vistaril is available as needed for anxiety. He has met with the internal medicine physician for routine history and physical exam. Social work will meet with the patient to complete a psychosocial assessment. We will monitor him for safety and encourage his participation in the milieu. We will involve his mother in treatment and discharge planning as he will allow.
[2017-07-02] MEDS: busPIRone HCl 5 MG TAB PO SCH ×2 (10:17→20:52)
[2017-07-02 19:42] LABS: Hemoglobin A1C 4.5 % (4.0-6.0)
[2017-07-02] MEDS: QUEtiapine 100 MG TAB PO SCH (20:52)
--- NOTE | 2017-07-03 09:09 | P.PN ---
Progress Note - Text Interval history: The patient is found in the hallway he follows me to an interview room. He states he continues to feel restless at times he feels anxiety. Mood symptoms seem to fluctuate still. He indicates he did best when he was on a higher dose of Seroquel including a daytime dose. He also states that he refused the evening dose of Keppra and states he cannot tolerate that medication because of headaches. He prefers been on Tegretol as that gave him no side effects. He reports partially compliant with groups appetite is stable. Mental status exam: The patient is alert he seated calmly eye contact is appropriate. He endorses some feelings of anxiety some lability of mood at times. He demonstrates no verbal or physical aggressiveness. He feels safe here in the hospital he is endorsing no acute suicidal or homicidal ideation intent or plan. He is endorsing no auditory or visual hallucinations. He remains oriented to person place and date. Insight and judgment improving. He demonstrates no symptoms of hypomania or jazmin. Plan: The patient will continue on his current medications however we will titrate the Seroquel to 100 mg in the morning 300 mg at bedtime Keppra will be discontinued we will start Tegretol 200 mg twice daily. We will continue to monitor him for safety. We will discuss his progress with the treatment team. Vital signs reviewed. Lab results reviewed.
[2017-07-03] MEDS: carBAMazepine 200 MG TAB PO SCH ×2 (09:13→21:06)
[2017-07-03] MEDS: NICOTINE 21MG/24HR PATCH TRANSDERM SCH (09:14)
[2017-07-03] MEDS: busPIRone HCl 5 MG TAB PO SCH ×2 (09:14→21:06)
[2017-07-03] MEDS: QUEtiapine 100 MG TAB PO SCH ×2 (09:14→21:07)
[2017-07-03] MEDS: levETIRAcetam 500 MG TAB PO SCH (09:16)
[2017-07-03] MEDS: hydrOXYzine PAMOATE 25 MG CAP PO PRN (17:08)
[2017-07-04 06:39] VITALS: BP 110/58; PULSE 76; RESP 14; TEMP 98
[2017-07-04] MEDS: QUEtiapine 100 MG TAB PO SCH (08:41)
[2017-07-04] MEDS: busPIRone HCl 5 MG TAB PO SCH (08:41)
[2017-07-04] MEDS: NICOTINE 21MG/24HR PATCH TRANSDERM SCH (08:41)
[2017-07-04] MEDS: carBAMazepine 200 MG TAB PO SCH (08:41)
--- NOTE | 2017-07-04 09:23 | P.DS ---
Providers Date of admission: 07/01/17 19:04 Expected date of discharge: 07/04/17 Attending physician: Wil Adams Consults: 07/01/17 19:10 Consult Physician Routine Consulting Provider: Michael Franco Consult Reason/Comments: H and P Do you want consulting provider notified?: Yes Primary care physician: Thompson Acosta - Discharge Diagnosis(es) (1) Depression Current Visit: No Status: Chronic (2) Anxiety Current Visit: Yes Status: Acute Hospital Course: Brief summary of admission note: This patient is a 31-year-old single male who was admitted to the mental health unit through the emergency room reporting symptoms of depression with suicidal ideation. The patient reported acute symptoms of depression with a plan to overdose. He endorsed having poor sleep or energy and hopelessness thinking. He reported racing thoughts due to anxiety and felt restless. He had been recently released from [facility] after serving a six-month sentence. He was placed on psychotropic medication in the correction but this was not continued upon discharge. The patient does have a known history of chemical dependency issues including abuse of benzodiazepines opiates and marijuana. For full details please refer to my psychiatric evaluation dictated 07/02/2017. Summary of hospital course: The patient was admitted to the mental health unit voluntarily. We reviewed his presenting symptoms and medication options. Seroquel was restarted and titrated to 100 mg in the morning 300 mg at bedtime BuSpar was restarted 15 mg twice daily this role was made available as needed for anxiety. He was seen by internal medicine and he was restarted on Keppra as he has a history of a single seizure in the past. The patient refused to continue Keppra due to headaches and preferred to be on Tegretol. Tegretol was initiated 200 mg twice daily. Baseline labs than normal limits to allow us to start Tegretol. The patient demonstrated no agitated behavior here on the mental health unit he reported a progressive improvement of symptoms while here. Immediately he reported a resolution of auditory hallucinations that he had discussed in the emergency room. He discussed a complete resolution of suicidal ideation as well. He inquired into the use of Xanax and he was instructed that he should not be placed on benzodiazepines as part of his treatment. He plans to return residing with his mother. The patient states he has always found the Seroquel was helpful for managing his mood symptoms and since we have restarted it he feels more hopeful and this can be managed further as an outpatient with outpatient mental health services scheduled. Mental status exam: The patient is a bald male dressed in his own clothing. He seated calmly. He is pleasant and cooperative. He reports his mood is good. Affect is euthymic and appropriately expressive. He is reporting no depressed mood. He feels his anxiety is reduced. He is reporting no suicidal or homicidal ideation intent or plan. He demonstrates no tangential thinking loose associations or flight of ideas. He does not appear hypomanic or manic. He is endorsing no auditory or visual hallucinations he is endorsing no specific delusions. There is no observable evidence of psychosis. He demonstrates no verbal or physical aggressiveness. He demonstrates no abnormal involuntary movements. He remains oriented to person place and date. He is able to spontaneously reports future oriented thinking. Impressions 1. Depression unspecified, anxiety unspecified, rule out major depressive disorder, benzodiazepine use disorder, opiate use disorder, cannabis use disorder 2. Antisocial personality disorder traits 3. History of single seizure 4. Unemployment Plan: The patient will be discharged mental health unit today to return residing with his mother. He will continue on Seroquel 100 mg in the morning 300 mg at bedtime, BuSpar 15 mg twice daily, Vistaril 25 mg up to twice daily as needed for anxiety symptoms. He has been restarted on Tegretol 200 mg twice daily for seizure control he will need to follow-up with his primary care physician for further monitoring. He is instructed to abstain from any use of alcohol marijuana or any other illicit drug. We discussed that they're use may elevate his safety risk. He is agreeable to following up with outpatient mental health services. There is no imminent safety risk is appropriate for transition to outpatient care he no longer requires inpatient psychiatric hospitalization. Patient Condition at Discharge: Stable Plan - Discharge Summary Discharge Rx Participant: No New Discharge Prescriptions: New busPIRone HCL 15 mg PO BID #60 tab carBAMazepine [TEGretol] 200 mg PO BID #60 tab hydrOXYzine PAMOATE [Vistaril] 25 mg PO BID PRN #60 cap PRN Reason: Anxiety Nicotine 21Mg/24Hr Patch [Habitrol] 1 patch TRANSDERM DAILY #12 patch QUEtiapine [SEROquel] 100 mg PO DAILY #30 tab QUEtiapine FUMARATE [SEROquel] 300 mg PO HS #30 tab Discontinued traMADol HCL [Ultram] 50 mg PO Q6HR PRN PRN Reason: Pain HYDROcodone/APAP 10-325MG [[place] 10-325] 1 tab PO Q6H PRN PRN Reason: Pain Gabapentin 600 mg PO Q6H Discharge Medication List Nicotine 21Mg/24Hr Patch [Habitrol] 1 patch TRANSDERM DAILY #12 patch 07/04/17 [ Rx] QUEtiapine FUMARATE [SEROquel] 300 mg PO HS #30 tab 07/04/17 [Rx] QUEtiapine [SEROquel] 100 mg PO DAILY #30 tab 07/04/17 [Rx] busPIRone HCL 15 mg PO BID #60 tab 07/04/17 [Rx] carBAMazepine [TEGretol] 200 mg PO BID #60 tab 07/04/17 [Rx] hydrOXYzine PAMOATE [Vistaril] 25 mg PO BID PRN #60 cap 07/04/17 [Rx] Follow up Appointment(s)/Referral(s): Thompson Acosta MD [Primary Care Provider] - 1-2 days
== END 2017-07-04 10:10 | disposition home or self-care (01) | DRG 881 ==
LOC: EC 14:40 → 3MHU 19:04
PROVIDERS: ADMIT Psychiatry & Neurology Psychiatry; ATTEND Psychiatry & Neurology Psychiatry
DX: F32.9 Major depressive disorder, single episode, unspecified (principal); R56.9 Unspecified convulsions; R45.851 Suicidal ideations; F41.9 Anxiety disorder, unspecified; F13.10 Sedative, hypnotic or anxiolytic abuse, uncomplicated; F11.10 Opioid abuse, uncomplicated; F12.10 Cannabis abuse, uncomplicated; F60.2 Antisocial personality disorder; M54.9 Dorsalgia, unspecified; G89.29 Other chronic pain; F17.200 Nicotine dependence, unspecified, uncomplicated; Z79.899 Other long term (current) drug therapy; Z56.0 Unemployment, unspecified; Z87.828 Personal history of other (healed) physical injury and trauma; Z88.8 Allergy status to other drugs, medicaments and biological substances; Z91.018 Allergy to other foods
CPT/HCPCS: 80053; 80061; 82075; 83036; 84443; 85025; 99285

== ENCOUNTER 2017-07-16 19:08 | Emergency (ER) | payer OTHER ==
[2017-07-16 19:39] VITALS: BP 119/64; TEMP 98.3
[2017-07-16] MEDS ORDERED: carBAMazepine 200 MG TAB PO STA (20:02)
[2017-07-16] MEDS ORDERED: DIAZEPAM 5 MG/ML 2 ML INJ IVP STA (20:02)
[2017-07-16] MEDS ORDERED: LORazepam 2 MG/ML INJ IV STA (20:02)
--- NOTE | 2017-07-16 20:05 | ED ---
General Adult HPI - General Chief complaint: Seizure Stated complaint: SEIZURES Time Seen by Provider: 07/16/17 19:52 Source: patient, RN notes reviewed, old records reviewed Mode of arrival: ambulatory Limitations: no limitations - History of Present Illness Initial comments: This is a 31-year-old male to the ER for evaluation of seizure. Patient has history of seizures history of psychiatric abuse and drug abuse. Patient had a seizure witnessed earlier today. About 6 episodes of near seizure and then one ulcers and had a full-blown generalized seizure. Patient did bite his tongue, he denies any injury or pain. Patient's friend ER for evaluation. Patient denies drugs or alcohol abuse, does admit to not taking seizure medication - Related Data Home Medications Medication Instructions Recorded Confirmed ALPRAZolam [Xanax] 0.25 mg PO DAILY PRN 07/16/17 07/16/17 Gabapentin 600 mg PO TID 07/16/17 07/16/17 traMADol HCL [Ultram] 50 mg PO DAILY PRN 07/16/17 07/16/17 Previous Rx's Medication Instructions Recorded carBAMazepine [TEGretol] 200 mg PO Q12H #60 tablet 07/16/17 Allergies Allergy/AdvReac Type Severity Reaction Status Date / Time onion Allergy Swelling Verified 07/16/17 19:47 strawberry Allergy Swelling Verified 07/16/17 19:47 haloperidol [From Haldol] AdvReac Unknown Verified 07/16/17 19:47 haloperidol lactate AdvReac Unknown Verified 07/16/17 19:47 [From Haldol] ziprasidone HCl [From Geodon] AdvReac Unknown Verified 07/16/17 19:47 ziprasidone mesylate AdvReac Vomiting Verified 07/16/17 19:47 [From Geodon] Review of Systems ROS Statement: Those systems with pertinent positive or pertinent negative responses have been documented in the HPI. ROS Other: All systems not noted in ROS Statement are negative. Past Medical History Past Medical History: Musculoskeletal Disorder, Seizure Disorder Additional Past Medical History / Comment(s): Herniated disc with chronic back pain-diagnosed 1.5 year ago approximately. History of Any Multi-Drug Resistant Organisms: None Reported Past Surgical History: No Surgical Hx Reported Additional Past Surgical History / Comment(s): Cyst removed from the right wrist and right leg Past Anesthesia/Blood Transfusion Reactions: No Reported Reaction Past Psychological History: Bipolar Smoking Status: Current every day smoker Past Alcohol Use History: None Reported Past Drug Use History: Marijuana - Past Family History Father History Unknown: Yes Family Medical History: No Reported History Additional Family Medical History / Comment(s): He does not know any history on his father. Mother Family Medical History: Cancer Additional Family Medical History / Comment(s): Mother is alive at age 45 with history of breast cancer Sister(s) Family Medical History: No Reported History Additional Family Medical History / Comment(s): He has one sister that is living in the [facility] and is healthy. Patient does not have any brothers. General Exam - General Exam Comments Initial Comments: Mild laceration to anterior tongue, no gaping, wound is currently healing Limitations: no limitations General appearance: alert, in no apparent distress Head exam: Present: atraumatic, normocephalic, normal inspection Eye exam: Present: normal appearance, PERRL, EOMI. Absent: scleral icterus, conjunctival injection, periorbital swelling ENT exam: Present: normal exam, mucous membranes moist Neck exam: Present: normal inspection. Absent: tenderness, meningismus, lymphadenopathy Respiratory exam: Present: normal lung sounds bilaterally. Absent: respiratory distress, wheezes, rales, rhonchi, stridor Cardiovascular Exam: Present: regular rate, normal rhythm, normal heart sounds. Absent: systolic murmur, diastolic murmur, rubs, gallop, clicks GI/Abdominal exam: Present: soft, normal bowel sounds. Absent: distended, tenderness, guarding, rebound, rigid Extremities exam: Present: normal inspection, full ROM, normal capillary refill. Absent: tenderness, pedal edema, joint swelling, calf tenderness Back exam: Present: normal inspection Neurological exam: Present: alert, oriented X3, CN II-XII intact Psychiatric exam: Present: normal affect, normal mood Skin exam: Present: warm, dry, intact, normal color. Absent: rash Course Vital Signs 07/16/17 19:35 Temperature 98.3 F Pulse Rate 99 Respiratory 20 Rate Blood Pressure 119/64 O2 Sat by Pulse 96 Oximetry - Reevaluation(s) Reevaluation #1: 07/16/17 20:04 Patient discussed need to take seizure medication, understands and is agreeable , again denies drugs or [facility] Medical Decision Making - Medical Decision Making 28 female the ER for evaluation regarding positive seizure. History of seizures , not taking seizure medications. We'll discharge patient on seizure medication as directed. Patient is without acute seizure here in the ER patient can be discharged Disposition Clinical Impression: Generalized convulsive seizures, Seizure disorder, Noncompliance with medication regimen Disposition: HOME SELF-CARE Condition: Good Instructions: Recurrent Seizures in Adults (ED) Prescriptions: carBAMazepine [TEGretol] 200 mg PO Q12H #60 tablet Referrals: Thompson Acosta MD [Primary Care Provider] - 1-2 days
[2017-07-16 20:31] VITALS: PULSE 77; RESP 18
== END 2017-07-16 20:35 | disposition home or self-care (01) ==
LOC: EC 19:08
DX: G40.909 Epilepsy, unspecified, not intractable, without status epilepticus (principal); Z91.14 Patient's other noncompliance with medication regimen; F17.200 Nicotine dependence, unspecified, uncomplicated; Z79.899 Other long term (current) drug therapy; Z91.018 Allergy to other foods; Z88.8 Allergy status to other drugs, medicaments and biological substances
CPT/HCPCS: 99284; 96374; 96375; J2060; J3360

== ENCOUNTER 2018-03-30 19:28 | Emergency (ER) | payer OTHER ==
[2018-03-30 19:35] VITALS: TEMP 98.6
[2018-03-30] MEDS ORDERED: SODIUM CHLORIDE 0.9% 500 ML IV STA (19:51)
[2018-03-30] MEDS ORDERED: SODIUM CHLORIDE 0.9% 1,000 ML IV STA (19:51)
[2018-03-30] MEDS ORDERED: ACTIVATED CHARCOAL-SORBITOL 50 GM/240 ML BOTTLE PO STA (19:54)
[2018-03-30] MEDS ORDERED: ACTIVATED CHARCOAL-SORBITOL 50 GM/240 ML BOTTLE ONE (19:55)
[2018-03-30 20:17] LABS: Basophils % (A) 0 %; Eosinophils # (A) 0.2 k/uL (0-0.7); Eosinophils % (A) 2 %; HCT 44.8 % (39.0-53.0); HGB 14.9 gm/dL (13.0-17.5); Lymphocytes # (A) 1.9 k/uL (1.0-4.8); Lymphocytes % (A) 27 %; MCH 29.4 pg (25.0-35.0); MCHC 33.3 g/dL (31.0-37.0); MCV 88.2 fL (80.0-100.0); Mean Platelet Volume 8.4; Monocytes # (A) 0.3 k/uL (0-1.0); Monocytes % (A) 4 %; Neutrophils # (A) 4.5 k/uL (1.3-7.7); Neutrophils % (A) 65 %; Platelet Count 276 k/uL (150-450); RBC 5.08 m/uL (4.30-5.90); RDW 13.7 % (11.5-15.5); WBC 6.9 k/uL (3.8-10.6)
--- NOTE | 2018-03-30 20:18 | ED ---
Overdose HPI - General Chief Complaint: Overdose Stated Complaint: overdose Time Seen by Provider: 03/30/18 19:41 Source: family Mode of arrival: ambulatory Limitations: altered mental status - History of Present Illness Initial Comments: This is a 32 male to the ER for evaluation. Patient presents today for evaluation regarding overdose. Patient unable to give history history obtained from mom, patient took overdose of hydroxyzine, 17 125 g pills. Patient is in no acute distress without complaint, ingestion was 2 hours prior to arrival MD Complaint: accidental overdose (Patient has traumatic brain injury) -: hour(s) (2) Intent: other (Traumatic brain injury, childlike behavior) How Overdose Was Discovered: other (Mother witnessed) Treatments Prior to Arrival: none - Related Data Home Medications Medication Instructions Recorded Confirmed Gabapentin [Neurontin] 900 mg PO DAILY 03/30/18 03/30/18 Levothyroxine Sodium 125 mcg PO DAILY 03/30/18 03/30/18 Multivitamins, Thera [Multivitamin 1 tab PO DAILY 03/30/18 03/30/18 (formulary)] QUEtiapine FUMARATE [SEROquel] 200 mg PO BID 03/30/18 03/30/18 levETIRAcetam 500 mg PO BID 03/30/18 03/30/18 Allergies Allergy/AdvReac Type Severity Reaction Status Date / Time onion Allergy Swelling Verified 03/30/18 19:49 strawberry Allergy Swelling Verified 03/30/18 19:49 haloperidol [From Haldol] AdvReac Unknown Verified 03/30/18 19:49 haloperidol lactate AdvReac Unknown Verified 03/30/18 19:49 [From Haldol] ziprasidone HCl [From Geodon] AdvReac Unknown Verified 03/30/18 19:49 ziprasidone mesylate AdvReac Vomiting Verified 03/30/18 19:49 [From Geodon] Review of Systems ROS Statement: Those systems with pertinent positive or pertinent negative responses have been documented in the HPI. ROS Other: All systems not noted in ROS Statement are negative. Past Medical History Past Medical History: Musculoskeletal Disorder, Pneumonia, Seizure Disorder Additional Past Medical History / Comment(s): Herniated disc with chronic back pain-diagnosed 1.5 year ago approximately. metabolic encephalopathy, mediastinal mass. History of Any Multi-Drug Resistant Organisms: None Reported Past Surgical History: No Surgical Hx Reported Additional Past Surgical History / Comment(s): Cyst removed from the right wrist and right leg. thyroidectomy. Past Anesthesia/Blood Transfusion Reactions: No Reported Reaction Past Psychological History: Bipolar Smoking Status: Current every day smoker Past Alcohol Use History: None Reported Past Drug Use History: Marijuana - Past Family History Father History Unknown: Yes Family Medical History: No Reported History Additional Family Medical History / Comment(s): He does not know any history on his father. Mother Family Medical History: Cancer Additional Family Medical History / Comment(s): Mother is alive at age 45 with history of breast cancer Sister(s) Family Medical History: No Reported History Additional Family Medical History / Comment(s): He has one sister that is living in the [facility] and is healthy. Patient does not have any brothers. General Exam Limitations: altered mental status General appearance: alert, in no apparent distress Head exam: Present: atraumatic, normocephalic, normal inspection Eye exam: Present: normal appearance, PERRL, EOMI. Absent: scleral icterus, conjunctival injection, periorbital swelling ENT exam: Present: normal exam, mucous membranes moist Neck exam: Present: normal inspection. Absent: tenderness, meningismus, lymphadenopathy Respiratory exam: Present: normal lung sounds bilaterally. Absent: respiratory distress, wheezes, rales, rhonchi, stridor Cardiovascular Exam: Present: regular rate, normal rhythm, normal heart sounds. Absent: systolic murmur, diastolic murmur, rubs, gallop, clicks GI/Abdominal exam: Present: soft, normal bowel sounds. Absent: distended, tenderness, guarding, rebound, rigid Extremities exam: Present: normal inspection, full ROM, normal capillary refill. Absent: tenderness, pedal edema, joint swelling, calf tenderness Back exam: Present: normal inspection Neurological exam: Present: alert, oriented X3, CN II-XII intact Psychiatric exam: Present: normal affect, normal mood Skin exam: Present: warm, dry, intact, normal color. Absent: rash Course Vital Signs 03/30/18 03/30/18 19:31 20:38 Temperature 98.6 F Pulse Rate 112 H 82 Respiratory 16 18 Rate Blood Pressure 105/70 120/78 O2 Sat by Pulse 100 100 Oximetry - Reevaluation(s) Reevaluation #1: 03/30/18 21:24 Spoke with poison control, patient's milligrams dose is not high enough for significant toxicity Spoke with family regarding findings and outcomes, questions are answered Medical Decision Making - Medical Decision Making 32 male the ER with accidental overdose, patient can be discharged home to care of family - Lab Data Result diagrams: 03/30/18 20:03 03/30/18 20:03 Lab Results 03/30/18 03/30/18 03/30/18 Range/Units 20:03 20:03 20:03 WBC 6.9 (3.8-10.6) k/uL RBC 5.08 (4.30-5.90) m/uL Hgb 14.9 (13.0-17.5) gm/dL Hct 44.8 (39.0-53.0) % MCV 88.2 (80.0-100.0) fL MCH 29.4 (25.0-35.0) pg MCHC 33.3 (31.0-37.0) g/dL RDW 13.7 (11.5-15.5) % Plt Count 276 (150-450) k/uL Neutrophils % 65 % Lymphocytes % 27 % Monocytes % 4 % Eosinophils % 2 % Basophils % 0 % Neutrophils # 4.5 (1.3-7.7) k/uL Lymphocytes # 1.9 (1.0-4.8) k/uL Monocytes # 0.3 (0-1.0) k/uL Eosinophils # 0.2 (0-0.7) k/uL Basophils # 0.0 (0-0.2) k/uL PT (9.0-12.0) sec INR (<1.2) Sodium 140 (137-145) mmol/L Potassium 4.2 (3.5-5.1) mmol/L Chloride 106 (98-107) mmol/L Carbon Dioxide 25 (22-30) mmol/L Anion Gap 9 mmol/L BUN 12 (9-20) mg/dL Creatinine 0.70 (0.66-1.25) mg/dL Est GFR (CKD-EPI)AfAm >90 (>60 ml/min/1.73 sqM) Est GFR (CKD-EPI)NonAf >90 (>60 ml/min/1.73 sqM) Glucose 97 (74-99) mg/dL Calcium 9.8 (8.4-10.2) mg/dL Total Bilirubin 0.2 (0.2-1.3) mg/dL AST 26 (17-59) U/L ALT 39 (21-72) U/L Alkaline Phosphatase 105 (38-126) U/L Total Creatine Kinase 31 L (55-170) U/L CK-MB (CK-2) 0.5 (0.0-2.4) ng/mL CK-MB (CK-2) Rel Index 1.6 Total Protein 6.8 (6.3-8.2) g/dL Albumin 4.0 (3.5-5.0) g/dL Lipase 131 (23-300) U/L TSH 1.990 (0.465-4.680) mIU/L Urine Color Urine Appearance (Clear) Urine pH (5.0-8.0) Ur Specific Ethan (1.001-1.035) Urine Protein (Negative) Urine Glucose (UA) (Negative) Urine Ketones (Negative) Urine Blood (Negative) Urine Nitrite (Negative) Urine Bilirubin (Negative) Urine Urobilinogen (<2.0) mg/dL Ur Leukocyte Esterase (Negative) Salicylates <1.0 mg/dL Urine Opiates Screen (NotDetected) Ur Oxycodone Screen (NotDetected) Urine Methadone Screen (NotDetected) Ur Propoxyphene Screen (NotDetected) Acetaminophen <10.0 ug/mL Ur Barbiturates Screen (NotDetected) U Tricyclic Antidepress (NotDetected) Ur Phencyclidine Scrn (NotDetected) Ur Amphetamines Screen (NotDetected) U Methamphetamines Scrn (NotDetected) U Benzodiazepines Scrn (NotDetected) Urine Cocaine Screen (NotDetected) U Marijuana (THC) Screen (NotDetected) Serum Alcohol <10 mg/dL 03/30/18 03/30/18 Range/Units 20:03 20:40 WBC (3.8-10.6) k/uL RBC (4.30-5.90) m/uL Hgb (13.0-17.5) gm/dL Hct (39.0-53.0) % MCV (80.0-100.0) fL MCH (25.0-35.0) pg MCHC (31.0-37.0) g/dL RDW (11.5-15.5) % Plt Count (150-450) k/uL Neutrophils % % Lymphocytes % % Monocytes % % Eosinophils % % Basophils % % Neutrophils # (1.3-7.7) k/uL Lymphocytes # (1.0-4.8) k/uL Monocytes # (0-1.0) k/uL Eosinophils # (0-0.7) k/uL Basophils # (0-0.2) k/uL PT 10.1 (9.0-12.0) sec INR 1.0 (<1.2) Sodium (137-145) mmol/L Potassium (3.5-5.1) mmol/L Chloride (98-107) mmol/L Carbon Dioxide (22-30) mmol/L Anion Gap mmol/L BUN (9-20) mg/dL Creatinine (0.66-1.25) mg/dL Est GFR (CKD-EPI)AfAm (>60 ml/min/1.73 sqM) Est GFR (CKD-EPI)NonAf (>60 ml/min/1.73 sqM) Glucose (74-99) mg/dL Calcium (8.4-10.2) mg/dL Total Bilirubin (0.2-1.3) mg/dL AST (17-59) U/L ALT (21-72) U/L Alkaline Phosphatase (38-126) U/L Total Creatine Kinase (55-170) U/L CK-MB (CK-2) (0.0-2.4) ng/mL CK-MB (CK-2) Rel Index Total Protein (6.3-8.2) g/dL Albumin (3.5-5.0) g/dL Lipase (23-300) U/L TSH (0.465-4.680) mIU/L Urine Color Yellow Urine Appearance Clear (Clear) Urine pH 7.0 (5.0-8.0) Ur Specific Ethan 1.015 (1.001-1.035) Urine Protein Negative (Negative) Urine Glucose (UA) Negative (Negative) Urine Ketones Negative (Negative) Urine Blood Negative (Negative) Urine Nitrite Negative (Negative) Urine Bilirubin Negative (Negative) Urine Urobilinogen <2.0 (<2.0) mg/dL Ur Leukocyte Esterase Negative (Negative) Salicylates mg/dL Urine Opiates Screen Not Detected (NotDetected) Ur Oxycodone Screen Not Detected (NotDetected) Urine Methadone Screen Not Detected (NotDetected) Ur Propoxyphene Screen Not Detected (NotDetected) Acetaminophen ug/mL Ur Barbiturates Screen Not Detected (NotDetected) U Tricyclic Antidepress Detected H (NotDetected) Ur Phencyclidine Scrn Not Detected (NotDetected) Ur Amphetamines Screen Not Detected (NotDetected) U Methamphetamines Scrn Not Detected (NotDetected) U Benzodiazepines Scrn Not Detected (NotDetected) Urine Cocaine Screen Not Detected (NotDetected) U Marijuana (THC) Screen Not Detected (NotDetected) Serum Alcohol mg/dL - EKG Data -: EKG Interpreted by Me (EKG shows normal sinus rhythm rate of 96, IL 136, QRS 90, QTc 446) Disposition Clinical Impression: Accidental drug ingestion Disposition: HOME SELF-CARE Condition: Good Instructions: Levothyroxine (By mouth) Is patient prescribed a controlled substance at d/c from ED?: No Referrals: Thompson Acosta MD [Primary Care Provider] - 1-2 days
[2018-03-30 20:22] LABS: Prothrombin Time 10.1 sec (9.0-12.0)
[2018-03-30 20:30] LABS: ALT 39 U/L (21-72); AST 26 U/L (17-59); Acetaminophen <10.0 ug/mL; Alcohol <10 mg/dL; Alkaline Phosphatase 105 U/L (38-126); Anion Gap 9 mmol/L; Blood Urea Nitrogen 12 mg/dL (9-20); Calcium 9.8 mg/dL (8.4-10.2); Carbon Dioxide 25 mmol/L (22-30); Chloride 106 mmol/L (98-107); Glucose 97 mg/dL (74-99); Lipase 131 U/L (23-300); Potassium 4.2 mmol/L (3.5-5.1); Salicylate <1.0 mg/dL; Sodium 140 mmol/L (137-145); Total Bilirubin 0.2 mg/dL (0.2-1.3); Total Protein 6.8 g/dL (6.3-8.2)
[2018-03-30 20:39] VITALS: BP 120/78; PULSE 82; RESP 18
[2018-03-30 20:41] LABS: Creatine Kinase MB 0.5 ng/mL (0.0-2.4)
[2018-03-30 20:50] LABS: Appearance,Urine Clear (Clear); Bilirubin,Urine Negative (Negative); Blood,Urine Negative (Negative); Color,Urine Yellow; Glucose,Urine (UA) Negative (Negative); Ketones,Urine Negative (Negative); Leukocyte Esterase,Urine Negative (Negative); Nitrite,Urine Negative (Negative); Protein,Urine Negative (Negative); Specific Gravity,Urine 1.015 (1.001-1.035); Urobilinogen,Urine <2.0 mg/dL (<2.0)
[2018-03-30 20:59] LABS: Amphetamine Screen,Urine Not Detected (NotDetected); Barbiturate Screen,Urine Not Detected (NotDetected); Benzodiazepines Screen,Urine Not Detected (NotDetected); Cocaine Screen,Urine Not Detected (NotDetected); Methadone Screen, Urine Not Detected (NotDetected); Opiate Screen,Urine Not Detected (NotDetected); Oxycodone Screen, Urine Not Detected (NotDetected); Phencyclidine Screen,Urine Not Detected (NotDetected); Tricyclic Antidepressant,Urine Detected (NotDetected); Urn Cannabinoid Scrn Not Detected (NotDetected)
== END 2018-03-30 21:34 | disposition home or self-care (01) ==
LOC: EC 19:28
DX: T43.591A Poisoning by other antipsychotics and neuroleptics, accidental (unintentional), initial encounter (principal); R41.82 Altered mental status, unspecified; F31.9 Bipolar disorder, unspecified; G40.909 Epilepsy, unspecified, not intractable, without status epilepticus; F17.200 Nicotine dependence, unspecified, uncomplicated; Z79.899 Other long term (current) drug therapy; Z88.8 Allergy status to other drugs, medicaments and biological substances; Z91.018 Allergy to other foods; Z87.820 Personal history of traumatic brain injury
CPT/HCPCS: 36415; 93005; 80053; 84443; 82550; 82553; 83690; 85025; 85610; 81003; 84480; 80306; 83520 ×2; 99284; 96360; G0480; 80320

== ENCOUNTER 2023-04-12 21:49 | Emergency (ER) | payer OTHER ==
[2023-04-12 22:16] VITALS: RESP 18
[2023-04-12 23:47] LABS: ALT 26 U/L (4-49); AST 25 U/L (17-59); African American GFR (CKD) >90 (>60 ml/min/1.73 sqM); Albumin 3.5 g/dL (3.5-5.0); Alcohol <10 mg/dL; Alkaline Phosphatase 124 U/L (38-126); Anion Gap 8 mmol/L; Blood Urea Nitrogen 17 mg/dL (9-20); Calcium 9.1 mg/dL (8.4-10.2); Carbon Dioxide 19 mmol/L (22-30); Chloride 113 mmol/L (98-107); Glucose 92 mg/dL (74-99); Non-African American GFR(CKD) >90 (>60 ml/min/1.73 sqM); Potassium 3.9 mmol/L (3.5-5.1); Sodium 140 mmol/L (137-145); Total Bilirubin 0.3 mg/dL (0.2-1.3); Total Protein 5.9 g/dL (6.3-8.2)
[2023-04-12 23:54] LABS: Basophils % (A) 0 %; Eosinophils # (A) 0.1 k/uL (0-0.7); Eosinophils % (A) 2 %; HCT 40.7 % (39.0-53.0); HGB 13.5 gm/dL (13.0-17.5); Lymphocytes # (A) 2.5 k/uL (1.0-4.8); Lymphocytes % (A) 34 %; MCH 29.5 pg (25.0-35.0); MCHC 33.2 g/dL (31.0-37.0); MCV 88.8 fL (80.0-100.0); Mean Platelet Volume 8.9; Monocytes # (A) 0.4 k/uL (0-1.0); Monocytes % (A) 5 %; Neutrophils # (A) 4.3 k/uL (1.3-7.7); Neutrophils % (A) 58 %; Platelet Count 241 k/uL (150-450); RBC 4.59 m/uL (4.30-5.90); RDW 13.1 % (11.5-15.5); WBC 7.5 k/uL (3.8-10.6)
--- NOTE | 2023-04-13 00:24 | ED ---
General Adult HPI - General Chief complaint: Psychiatric Symptoms Stated complaint: suicidal Time Seen by Provider: 04/12/23 22:10 Source: patient Mode of arrival: ambulatory Limitations: no limitations - History of Present Illness Initial comments: 37-year-old male with past history of closed head injury, bipolar who presents to the emergency department reporting suicidal ideations. States for the past 3 days he has had suicidal ideations with a plan to take a bunch of his pills. He did mention this to his mother. He does have a history of bipolar depression. States he has not followed with a counselor in a year. He denies any attempt at harming himself. No homicidal ideations. Denies alcohol or drug use. No other alleviating, precipitating or modifying factors - Related Data Home Medications Medication Instructions Recorded Confirmed QUEtiapine FUMARATE [SEROquel] 200 mg PO HS 03/30/18 04/13/23 Atorvastatin [Lipitor] 40 mg PO DAILY 04/13/23 04/13/23 HYDROcodone/APAP 5-325MG [[place] 2 tab PO TID PRN 04/13/23 04/13/23 5-325] Lacosamide [Vimpat] 200 mg PO BID 04/13/23 04/13/23 Levothyroxine Sodium 200 mcg PO DAILY 04/13/23 04/13/23 Meloxicam [Mobic] 15 mg PO DAILY 04/13/23 04/13/23 Pregabalin [Lyrica] 75 mg PO BID 04/13/23 04/13/23 Allergies Allergy/AdvReac Type Severity Reaction Status Date / Time onion Allergy Swelling Verified 04/13/23 14:25 strawberry Allergy Swelling Verified 04/13/23 14:25 haloperidol [From Haldol] AdvReac Unknown Verified 04/13/23 14:25 haloperidol lactate AdvReac Unknown Verified 04/13/23 14:25 [From Haldol] ziprasidone HCl [From Geodon] AdvReac Unknown Verified 04/13/23 14:25 ziprasidone mesylate AdvReac Vomiting Verified 04/13/23 14:25 [From Geodon] Review of Systems ROS Statement: Those systems with pertinent positive or pertinent negative responses have been documented in the HPI. ROS Other: All systems not noted in ROS Statement are negative. Past Medical History Past Medical History: Musculoskeletal Disorder, Pneumonia, Seizure Disorder Additional Past Medical History / Comment(s): Herniated disc with chronic back pain-diagnosed 1.5 year ago approximately. metabolic encephalopathy, mediastinal mass. Closed head injury History of Any Multi-Drug Resistant Organisms: None Reported Past Surgical History: No Surgical Hx Reported Additional Past Surgical History / Comment(s): Cyst removed from the right wrist and right leg. thyroidectomy. Past Anesthesia/Blood Transfusion Reactions: No Reported Reaction Past Psychological History: Bipolar Smoking Status: Never smoker Past Alcohol Use History: None Reported Past Drug Use History: Marijuana - Past Family History Father History Unknown: Yes Family Medical History: No Reported History Additional Family Medical History / Comment(s): He does not know any history on his father. Mother Family Medical History: Cancer Additional Family Medical History / Comment(s): Mother is alive at age 45 with history of breast cancer Sister(s) Family Medical History: No Reported History Additional Family Medical History / Comment(s): He has one sister that is living in the [place] area and is healthy. Patient does not have any brothers. General Exam Limitations: no limitations General appearance: alert, in no apparent distress Head exam: Present: atraumatic, normocephalic, normal inspection Eye exam: Present: normal appearance, PERRL, EOMI. Absent: scleral icterus, conjunctival injection, periorbital swelling ENT exam: Present: normal exam, mucous membranes moist Neck exam: Present: normal inspection. Absent: tenderness, meningismus, lymphadenopathy Respiratory exam: Present: normal lung sounds bilaterally. Absent: respiratory distress, wheezes, rales, rhonchi, stridor Cardiovascular Exam: Present: regular rate, normal rhythm, normal heart sounds. Absent: systolic murmur, diastolic murmur, rubs, gallop, clicks GI/Abdominal exam: Present: soft, normal bowel sounds. Absent: distended, tenderness, guarding, rebound, rigid Extremities exam: Present: normal inspection, full ROM, normal capillary refill. Absent: tenderness, pedal edema, joint swelling, calf tenderness Back exam: Present: normal inspection Neurological exam: Present: alert, oriented X3, CN II-XII intact Psychiatric exam: Present: depressed Skin exam: Present: warm, dry, intact, normal color. Absent: rash Course Vital Signs 04/12/23 04/13/23 21:58 07:49 Temperature 98.3 F 97.9 F Pulse Rate 94 63 Respiratory 18 18 Rate Blood Pressure 125/77 135/89 O2 Sat by Pulse 98 96 Oximetry Medical Decision Making - Medical Decision Making Was pt. sent in by a medical professional or institution (MARIO Orellana, RIGGING ENGINEER, urgent care, hospital, or [facility]...) When possible be specific @ -No Did you speak to anyone other than the patient for history (EMS, parent, family, police, friend...)? What history was obtained from this source @ -No Did you review nursing and triage notes (agree or disagree)? Why? @ -I reviewed and agree with nursing and triage notes Were old charts reviewed (outside hosp., previous admission, EMS record, old EKG, old radiological studies, urgent care reports/EKG's, [facility] records)? Report findings @ -No old charts were reviewed Differential Diagnosis (chest pain, altered mental status, abdominal pain women, abdominal pain men, vaginal bleeding, weakness, fever, dyspnea, syncope, headache, dizziness, GI bleed, back pain, seizure, CVA, palpatations, mental health, musculoskeletal)? @ -Differential Mental Health Depression, anxiety, bipolar, psychosis, schizophrenia, borderline personality, situational depression, adjustment disorder, behavioral disorder, brain tumor, malingering, substance abuse, encephalopathy, medication reaction, dementia, hypothyroidism, degenerative neurologic disorder, lupus.... This is not meant to be all-inclusive list EKG interpreted by me (3pts min.). @ -Not done X-rays interpreted by me (1pt min.). @ -None done CT interpreted by me (1pt min.). @ -None done U/S interpreted by me (1pt. min.). @ -None done What testing was considered but not performed or refused? (CT, X-rays, U/S, labs)? Why? @ -None What meds were considered but not given or refused? Why? @ -None Did you discuss the management of the patient with other professionals (professionals i.e. MARIO Orellana, RIGGING ENGINEER, lab, RT, psych nurse, social services specialist, kerrick kleaner operator, teacher, chief security and safety officer, case maker)? Give summary @ -Spoke with EPS who will evaluate the patient Was smoking cessation discussed for >3mins.? @ -No Was critical care preformed (if so, how long)? @ -No Were there social determinants of health that impacted care today? How? (Homelessness, low income, unemployed, alcoholism, drug addiction, transportation, low edu. Level, literacy, decrease access to med. care, senior care, rehab)? @ -No Was there de-escalation of care discussed even if they declined (Discuss DNR or withdrawal of care, Hospice)? DNR status @ -No What co-morbidities impacted this encounter? (DM, HTN, Smoking, COPD, CAD, Cancer, CVA, ARF, Chemo, Hep., AIDS, mental health diagnosis, sleep apnea, morbid obesity)? @ -Closed head injury Was patient admitted / discharged? Hospital course, mention meds given and route, prescriptions, significant lab abnormalities, going to OR and other pertinent info. @ -Upon arrival patient placed into room 14. Thorough history and physical exam was performed. Patient reports suicidal ideations with the plan. He is awaiting EPS evaluation at this time. EPS did determine in the morning of the patient was stable for discharge home into his mother's care Undiagnosed new problem with uncertain prognosis? @ -No Drug Therapy requiring intensive monitoring for toxicity (Heparin, Nitro, Insulin, Cardizem)? @ -No Were any procedures done? @ -No Diagnosis/symptom? @ -acute depression, suicidal ideations Acute, or Chronic, or Acute on Chronic? @ -acute Uncomplicated (without systemic symptoms) or Complicated (systemic symptoms)? @ -complicated Side effects of treatment? @ -No Exacerbation, Progression, or Severe Exacerbation? @ -No Poses a threat to life or bodily function? How? (Chest pain, [place], [place], pneumonia, PE, COPD, DKA, ARF, appy, cholecystitis, CVA, Diverticulitis, Homicidal, Suicidal, threat to staff... and all critical care pts) @ -yes - patient has suicidal ideations - Lab Data Result diagrams: 04/12/23 23:22 04/12/23 23:22 Lab Results 04/12/23 04/12/23 04/12/23 Range/Units 23:22 23:22 23:30 WBC 7.5 (3.8-10.6) k/uL RBC 4.59 (4.30-5.90) m/uL Hgb 13.5 (13.0-17.5) gm/dL Hct 40.7 (39.0-53.0) % MCV 88.8 (80.0-100.0) fL MCH 29.5 (25.0-35.0) pg MCHC 33.2 (31.0-37.0) g/dL RDW 13.1 (11.5-15.5) % Plt Count 241 (150-450) k/uL MPV 8.9 Neutrophils % 58 % Lymphocytes % 34 % Monocytes % 5 % Eosinophils % 2 % Basophils % 0 % Neutrophils # 4.3 (1.3-7.7) k/uL Lymphocytes # 2.5 (1.0-4.8) k/uL Monocytes # 0.4 (0-1.0) k/uL Eosinophils # 0.1 (0-0.7) k/uL Basophils # 0.0 (0-0.2) k/uL Sodium 140 (137-145) mmol/L Potassium 3.9 (3.5-5.1) mmol/L Chloride 113 H (98-107) mmol/L Carbon Dioxide 19 L (22-30) mmol/L Anion Gap 8 mmol/L BUN 17 (9-20) mg/dL Creatinine 0.68 (0.66-1.25) mg/dL Est GFR (CKD-EPI)AfAm >90 (>60 ml/min/1.73 sqM) Est GFR (CKD-EPI)NonAf >90 (>60 ml/min/1.73 sqM) Glucose 92 (74-99) mg/dL Calcium 9.1 (8.4-10.2) mg/dL Total Bilirubin 0.3 (0.2-1.3) mg/dL AST 25 (17-59) U/L ALT 26 (4-49) U/L Alkaline Phosphatase 124 (38-126) U/L Total Protein 5.9 L (6.3-8.2) g/dL Albumin 3.5 (3.5-5.0) g/dL Urine Opiates Screen Detected H (NotDetected) Ur Oxycodone Screen Not Detected (NotDetected) Urine Methadone Screen Not Detected (NotDetected) Ur Propoxyphene Screen Not Detected (NotDetected) Ur Barbiturates Screen Not Detected (NotDetected) U Tricyclic Antidepress Detected H (NotDetected) Ur Phencyclidine Scrn Not Detected (NotDetected) Ur Amphetamines Screen Not Detected (NotDetected) U Methamphetamines Scrn Not Detected (NotDetected) U Benzodiazepines Scrn Detected H (NotDetected) Urine Cocaine Screen Not Detected (NotDetected) U Marijuana (THC) Screen Detected H (NotDetected) Serum Alcohol <10 mg/dL Influenza Type A (PCR) (Not Detectd) Influenza Type B (PCR) (Not Detectd) RSV (PCR) (Not Detectd) SARS-CoV-2 (PCR) (Not Detectd) 04/12/23 Range/Units 23:30 WBC (3.8-10.6) k/uL RBC (4.30-5.90) m/uL Hgb (13.0-17.5) gm/dL Hct (39.0-53.0) % MCV (80.0-100.0) fL MCH (25.0-35.0) pg MCHC (31.0-37.0) g/dL RDW (11.5-15.5) % Plt Count (150-450) k/uL MPV Neutrophils % % Lymphocytes % % Monocytes % % Eosinophils % % Basophils % % Neutrophils # (1.3-7.7) k/uL Lymphocytes # (1.0-4.8) k/uL Monocytes # (0-1.0) k/uL Eosinophils # (0-0.7) k/uL Basophils # (0-0.2) k/uL Sodium (137-145) mmol/L Potassium (3.5-5.1) mmol/L Chloride (98-107) mmol/L Carbon Dioxide (22-30) mmol/L Anion Gap mmol/L BUN (9-20) mg/dL Creatinine (0.66-1.25) mg/dL Est GFR (CKD-EPI)AfAm (>60 ml/min/1.73 sqM) Est GFR (CKD-EPI)NonAf (>60 ml/min/1.73 sqM) Glucose (74-99) mg/dL Calcium (8.4-10.2) mg/dL Total Bilirubin (0.2-1.3) mg/dL AST (17-59) U/L ALT (4-49) U/L Alkaline Phosphatase (38-126) U/L Total Protein (6.3-8.2) g/dL Albumin (3.5-5.0) g/dL Urine Opiates Screen (NotDetected) Ur Oxycodone Screen (NotDetected) Urine Methadone Screen (NotDetected) Ur Propoxyphene Screen (NotDetected) Ur Barbiturates Screen (NotDetected) U Tricyclic Antidepress (NotDetected) Ur Phencyclidine Scrn (NotDetected) Ur Amphetamines Screen (NotDetected) U Methamphetamines Scrn (NotDetected) U Benzodiazepines Scrn (NotDetected) Urine Cocaine Screen (NotDetected) U Marijuana (THC) Screen (NotDetected) Serum Alcohol mg/dL Influenza Type A (PCR) Not Detected (Not Detectd) Influenza Type B (PCR) Not Detected (Not Detectd) RSV (PCR) Not Detected (Not Detectd) SARS-CoV-2 (PCR) Not Detected (Not Detectd) Disposition Clinical Impression: Depression Disposition: HOME SELF-CARE Condition: Stable Instructions (If sedation given, give patient instructions): Depression (ED) Is patient prescribed a controlled substance at d/c from ED?: No Referrals: None,Stated [REFERRING] - 1-2 days
[2023-04-13 01:07] LABS: Cocaine Screen,Urine Not Detected (NotDetected); Phencyclidine Screen,Urine Not Detected (NotDetected); Urn Cannabinoid Scrn Detected (NotDetected)
[2023-04-13 01:08] LABS: Amphetamine Screen,Urine Not Detected (NotDetected); Barbiturate Screen,Urine Not Detected (NotDetected); Benzodiazepines Screen,Urine Detected (NotDetected); Methadone Screen, Urine Not Detected (NotDetected); Opiate Screen,Urine Detected (NotDetected); Oxycodone Screen, Urine Not Detected (NotDetected); Tricyclic Antidepressant,Urine Detected (NotDetected)
[2023-04-13] MEDS ORDERED: ACETAMINOPHEN TAB 500 MG TAB PO STA (07:53)
[2023-04-13 08:10] VITALS: BP 135/89; PULSE 63; TEMP 97.9
[2023-04-13] MEDS ORDERED: NICOTINE 21MG/24HR PATCH TRANSDERM STA (11:52)
[2023-04-13] MEDS ORDERED: HYDROcodone/APAP 5-325MG 1 EACH TAB PO PRN (14:54)
[2023-04-13] MEDS ORDERED: QUEtiapine 200 MG TAB PO SCH (21:00)
[2023-04-13] MEDS ORDERED: NON FORMULARY DRUG (Lacosamide [Vimpat] 200 MG Tablet) PO SCH (21:00)
[2023-04-13] MEDS ORDERED: PREGABALIN 75 MG CAP PO SCH (21:00)
[2023-04-14] MEDS ORDERED: LEVOTHYROXINE SODIUM 200 MCG PO SCH (09:00)
[2023-04-14] MEDS ORDERED: NON FORMULARY DRUG (Meloxicam [Mobic] 15 MG Tablet) PO SCH (09:00)
[2023-04-14] MEDS ORDERED: ATORVASTATIN 40 MG TAB PO SCH (09:00)
== END 2023-04-13 16:50 | disposition home or self-care (01) ==
LOC: EC 21:49
DX: F32.A Depression, unspecified (principal); F12.90 Cannabis use, unspecified, uncomplicated; Z79.899 Other long term (current) drug therapy; Z20.822 Contact with and (suspected) exposure to COVID-19; Z91.018 Allergy to other foods; Z88.8 Allergy status to other drugs, medicaments and biological substances
CPT/HCPCS: 36415; 80053; 85025; 80306; 87636; 99285; G0480; S4990; 80320

== ENCOUNTER 2024-04-11 14:04 | Emergency (ER) | payer OTHER ==
[2024-04-11] MEDS ORDERED: dexAMETHasone ORAL SOLUTION 10 MG/ML VIAL PO STA (14:47)
--- NOTE | 2024-04-11 14:52 | ED ---
General Adult HPI - General Stated complaint: Dental issue Time Seen by Provider: 04/11/24 14:35 Source: patient, family, RN notes reviewed - History of Present Illness Initial comments: Patient is a 38-year-old male who presents emergency department complaining of dental pain. Recently had dental surgery on Friday. He has been unable to get his pain medication or antibiotic prescription as they think it is not available for some reason. Patient has some swelling and pain at the site. Had multiple root canals and teeth extractions. Presents for further evaluation at this time. Denies any difficulty swallowing or breathing. Endorses soreness and some mild edema around the site but no other acute complaints. No fevers or chills. Presents for further evaluation. Primary complaint is that they feel they need antibiotics as well as pain medications which are unavailable from the dentist. Denies any tongue swelling, Neck swelling - Related Data Home Medications Medication Instructions Recorded Confirmed QUEtiapine FUMARATE [SEROquel] 200 mg PO HS 03/30/18 04/13/23 Atorvastatin [Lipitor] 40 mg PO DAILY 04/13/23 04/13/23 HYDROcodone/APAP 5-325MG [[place] 2 tab PO TID PRN 04/13/23 04/13/23 5-325] Lacosamide [Vimpat] 200 mg PO BID 04/13/23 04/13/23 Levothyroxine Sodium 200 mcg PO DAILY 04/13/23 04/13/23 Meloxicam [Mobic] 15 mg PO DAILY 04/13/23 04/13/23 Pregabalin [Lyrica] 75 mg PO BID 04/13/23 04/13/23 Previous Rx's Medication Instructions Recorded Amoxic-Pot Clav 400-57Mg/5Ml 10 ml PO Q12H 7 Days #140 ml 04/11/24 [Augmentin 400-57 mg/5 ml Susp] Allergies Allergy/AdvReac Type Severity Reaction Status Date / Time onion Allergy Swelling Verified 04/13/23 14:25 strawberry Allergy Swelling Verified 04/13/23 14:25 haloperidol [From Haldol] AdvReac Unknown Verified 04/13/23 14:25 haloperidol lactate AdvReac Unknown Verified 04/13/23 14:25 [From Haldol] ziprasidone HCl [From Geodon] AdvReac Unknown Verified 04/13/23 14:25 ziprasidone mesylate AdvReac Vomiting Verified 04/13/23 14:25 [From Sumi] Review of Systems ROS Statement: Those systems with pertinent positive or pertinent negative responses have been documented in the HPI. Review of Systems: CONST: Denies fever EYES: Denies blurry vision ENT: Endorses dental pain C/V: Denies Chest pain RESP: Denies shortness of breath GI: Denies abdominal pain : Denies dysuria SKIN: Denies rash. MSK: Denies joint pain. NEURO: Denies headache ROS Other: All systems not noted in ROS Statement are negative. Past Medical History Past Medical History: Musculoskeletal Disorder, Pneumonia, Seizure Disorder Additional Past Medical History / Comment(s): Herniated disc with chronic back pain-diagnosed 1.5 year ago approximately. metabolic encephalopathy, mediastinal mass. Closed head injury History of Any Multi-Drug Resistant Organisms: None Reported Past Surgical History: No Surgical Hx Reported Additional Past Surgical History / Comment(s): Cyst removed from the right wrist and right leg. thyroidectomy. Past Anesthesia/Blood Transfusion Reactions: No Reported Reaction Past Psychological History: Bipolar Smoking Status: Never smoker Past Alcohol Use History: None Reported Past Drug Use History: Marijuana - Past Family History Father History Unknown: Yes Family Medical History: No Reported History Additional Family Medical History / Comment(s): He does not know any history on his father. Mother Family Medical History: Cancer Additional Family Medical History / Comment(s): Mother is alive at age 45 with history of breast cancer Sister(s) Family Medical History: No Reported History Additional Family Medical History / Comment(s): He has one sister that is living in the [facility], [place], operated by [facility] and is healthy. Patient does not have any brothers. General Exam - General Exam Comments Initial Comments: General: Appears in no acute distress. HEAD: Normal with no signs of head trauma. EYES: PERRLA, EOMI, conjunctiva normal, no discharge. ENT: Hearing grossly intact, normal oropharynx. No sinus tenderness to palpation. Swelling along the right upper jawline. No tongue edema. No uvula deviation. No posterior oropharyngeal swelling. No submandibular swelling. No floor the mouth swelling. No stridor. No concern for Raul's angina. Surgical incisions are not actively bleeding. RESPIRATORY: Clear breath sounds bilaterally. No wheezes, rales, or rhonchi. C/V: Regular rate and rhythm. S1 and S2 auscultated, no edema, peripheral pulses 2+ and intact throughout ABD: Abd is soft, nontender, nondistended EXT: Normal range of motion, no obvious deformity SKIN: No rashes or lesions observed on exposed skin. NEURO: Alert and oriented x 4. Course Vital Signs 04/11/24 04/11/24 14:53 15:34 Temperature 98.2 F 98.5 F Pulse Rate 69 85 Respiratory 18 18 Rate Blood Pressure 112/76 120/74 O2 Sat by Pulse 98 100 Oximetry Medical Decision Making - Medical Decision Making Was pt. sent in by a medical professional or institution (, PA, B[employer]ER, urgent care, hospital, or correction...) When possible be specific @ -No Did you speak to anyone other than the patient for history (EMS, parent, family, police, friend...)? What history was obtained from this source @ -No Did you review nursing and triage notes (agree or disagree)? Why? @ -I reviewed and agree with nursing and triage notes Were old charts reviewed (outside hosp., previous admission, EMS record, old EKG, old radiological studies, urgent care reports/EKG's, correction records)? Report findings @ -No old charts were reviewed Differential Diagnosis (chest pain, altered mental status, abdominal pain women, abdominal pain men, vaginal bleeding, weakness, fever, dyspnea, syncope, headache, dizziness, GI bleed, back pain, seizure, CVA, palpatations, mental health, musculoskeletal)? @ -Dental pain, Raul's angina, postop infection, postop swelling, postop pain. This list is not all inclusive. EKG interpreted by me (3pts min.). @ -None done X-rays interpreted by me (1pt min.). @ -None done CT interpreted by me (1pt min.). @ -None done U/S interpreted by me (1pt. min.). @ -None done What testing was considered but not performed or refused? (CT, X-rays, U/S, labs)? Why? @ -Considered laboratory studies, imaging however after discussion with patient as well as patient's family disguised to defer at this time is no concern for Raul's angina at this time. Return precautions discussed. What meds were considered but not given or refused? Why? @ -None Did you discuss the management of the patient with other professionals (professionals i.e. , PA, B[employer]ER, lab, RT, psych nurse, social contact worker, slip filler, teacher, nursing officer, nurse case management)? Give summary @ -No Was smoking cessation discussed for >3mins.? @ -No Was critical care preformed (if so, how long)? @ -No Were there social determinants of health that impacted care today? How? (Homelessness, low income, unemployed, alcoholism, drug addiction, transportation, low edu. Level, literacy, decrease access to med. care, [facility], rehab)? @ -No Was there de-escalation of care discussed even if they declined (Discuss DNR or withdrawal of care, Hospice)? DNR status @ -No What co-morbidities impacted this encounter? (DM, HTN, Smoking, COPD, CAD, Cancer, CVA, ARF, Chemo, Hep., AIDS, mental health diagnosis, sleep apnea, morb id obesity)? @ -None Was patient admitted / discharged? Hospital course, mention meds given and route, prescriptions, significant lab abnormalities, going to OR and other pertinent info. @ -Patient presents with dental pain post dental surgery. Unable to fill antibiotics or pain medications. Vital signs within acceptable limits. No respiratory distress. Tolerating oral intake. Tolerating secretions. No evidence of Raul's angina at this time. I did discuss with the patient as well as mother and we did discuss possibility of obtaining imaging or laboratory studies however we all agreed to defer at this time as this is expected postop swelling. Patient will be started on Augmentin and given a prescription. They request liquid. Patient will also be given a dose of a steroid as well as Tylenol 3 starter pack. They were in agreement this plan. Strict return precautions discussed. Recommend follow-up with dentistry tomorrow. I will provide the patient with a prescription for Augmentin. I instructed the patient to follow up with their PCP in the next 1-3 days.. I explained that the patient should return to the emergency department if they experience any worsening symptoms. Strict return precautions were discussed with the patient. The patient expressed understanding of these instructions. I answered all questions that the patient had. The patient was discharged home in good condition with their prescriptions and follow up information. Undiagnosed new problem with uncertain prognosis? @ -No Drug Therapy requiring intensive monitoring for toxicity (Heparin, Nitro, Insulin, Cardizem)? @ -No Were any procedures done? @ -No Diagnosis/symptom? @ -Dental pain, postop pain Acute, or Chronic, or Acute on Chronic? @ -Acute Uncomplicated (without systemic symptoms) or Complicated (systemic symptoms)? @ -Uncomplicated Side effects of treatment? @ -No Exacerbation, Progression, or Severe Exacerbation? @ -No Poses a threat to life or bodily function? How? (Chest pain, [place], [place], pneumonia, PE, COPD, DKA, ARF, appy, cholecystitis, CVA, Diverticulitis, Homicidal, Suicidal, threat to staff... and all critical care pts) @ -Unlikely Disposition Clinical Impression: Pain, dental, Post-op pain Disposition: HOME SELF-CARE Condition: Good Instructions (If sedation given, give patient instructions): Toothache (ED) Additional Instructions: follow up with your dentist. return if worsening symptoms. Prescriptions: Amoxic-Pot Clav 400-57Mg/5Ml [Augmentin 400-57 mg/5 ml Susp] 10 ml PO Q12H 7 Days #140 ml Is patient prescribed a controlled substance at d/c from ED?: No Referrals: Vineet Shepherd MD [Primary Care Provider] - 1-2 days Time of Disposition: 14:51
[2024-04-11 14:56] VITALS: RESP 18
[2024-04-11] MEDS: ACET/COD 300 MG/30 MG STARTER PACK 6 TAB BTL PO STA (15:27)
[2024-04-11] MEDS: HYDROcodone/APAP 5-325MG 1 EACH TAB PO STA (15:27)
[2024-04-11] MEDS: dexAMETHasone 2 MG TAB PO STA (15:28)
[2024-04-11] MEDS: AMOXIC-POT CLAV 200-28.5MG/5ML 100 ML BOTTLE PO ONE (15:29)
[2024-04-11 15:36] VITALS: BP 120/74; PULSE 85; TEMP 98.5
== END 2024-04-11 15:36 | disposition home or self-care (01) ==
LOC: EC 14:04
CPT/HCPCS: 99282